=== PATIENT | male | born 1945 | race Caucasian/White ===

== ENCOUNTER 2017-06-03 20:06 | Emergency (ER) | payer OTHER ==
[2017-06-03 22:32] LABS: ADD MAN DIFF? NO
[2017-06-03 22:35] LABS: WHITE BLOOD COUNT 7.3 10^3/ul (4.8-10.8)
[2017-06-03 22:35] LABS: BASOPHILS % 0.1 % (0.0-2.0); EOSINOPHILS % 0.5 % (0.0-7.0); HEMATOCRIT 30.9 % (42.0-52.0); HEMOGLOBIN 9.3 g/dl (14.0-18.0); LYMPHOCYTES # 1.9 10^3/ul (0.8-2.9); LYMPHOCYTES % 25.5 % (15.0-51.0); MEAN CORPUSCULAR HEMOGLOBIN 21.8 pg (29.0-33.0); MEAN CORPUSCULAR HGB CONC 30.1 g/dl (32.0-37.0); MEAN CORPUSCULAR VOLUME 72.4 fl (82.0-101.0); MEAN PLATELET VOLUME 10.6 fl (7.4-10.4); MONOCYTE # 0.6 10^3/ul (0.3-0.9); NEUTROPHIL # 4.8 10^3/ul (1.6-7.5); NEUTROPHILS % 65.6 % (39.0-77.0); PLATELET COUNT 287 10^3/UL (140-415); RED BLOOD COUNT 4.27 10^6/ul (4.70-6.10); RED CELL DISTRIBUTION WIDTH 16.4 % (11.5-14.5)
[2017-06-03 22:42] LABS: ALANINE AMINOTRANSFERASE 26 IU/L (13-69); ALBUMIN 3.8 g/dl (3.3-4.9); ALBUMIN/GLOBULIN RATIO 0.88; ALKALINE PHOSPHATASE 105 IU/L (42-121); ANION GAP 20 (8-16); ASPARTATE AMINO TRANSFERASE 35 IU/L (15-46); BLOOD UREA NITROGEN 14 mg/dl (7-20); CALCIUM 8.3 mg/dl (8.4-10.2); CARBON DIOXIDE 17 mmol/L (21-31); CHLORIDE 103 mmol/L (97-110); CREATININE 0.78 mg/dl (0.61-1.24); GLUCOSE 131 mg/dl (70-220); LIPASE 116 U/L (23-300); POTASSIUM 3.8 mmol/L (3.5-5.1); SODIUM 136 mmol/L (135-144); TOTAL PROTEIN 8.1 g/dl (6.1-8.1)
[2017-06-03 22:44] LABS: ADD UMIC NO; UR ASCORBIC ACID 20 mg/dL (NEGATIVE); UR BILIRUBIN (Dip) NEGATIVE (NEGATIVE); UR BLOOD (Dip) NEGATIVE (NEGATIVE); UR CLARITY CLEAR (CLEAR); UR COLOR STRAW (YELLOW); UR GLUCOSE (Dip) NEGATIVE (NEGATIVE); UR KETONES (Dip) NEGATIVE (NEGATIVE); UR LEUKOCYTE ESTERASE (Dip) NEGATIVE Leu/ul (NEGATIVE); UR NITRITE (Dip) NEGATIVE (NEGATIVE); UR SPECIFIC GRAVITY (Dip) 1.009 (1.003-1.030); UR TOTAL PROTEIN (Dip) NEGATIVE (NEGATIVE); UR UROBILINOGEN (Dip) NEGATIVE (NEGATIVE)
[2017-06-03] MEDS: FAMOTIDINE 20 MG INJ IV (22:53)
[2017-06-03] MEDS: HYDROmorphONE 0.5 MG/0.5 ML SYG IV (22:53)
[2017-06-03] MEDS: ONDANSETRON 4 MG INJ IV (22:53)
[2017-06-03] MEDS: SOD CHLORIDE 0.9% 1,000 ML IV (22:53)
[2017-06-03] MEDS: LIDOCAINE/MYLANTA 40 ML BTL PO (22:59)
[2017-06-04] MEDS: SOD CHLORIDE 0.9% 1,000 ML IV (00:52)
[2017-06-04] MEDS: LIDOCAINE/MYLANTA 40 ML BTL PO (01:07)
[2017-06-04] MEDS: ONDANSETRON 4 MG INJ IV (01:08)
[2017-06-04] MEDS: HYDROmorphONE 0.5 MG/0.5 ML SYG IV (01:08)
[2017-06-04] MEDS: SOD CHLORIDE 0.9% 100 ML (01:29)
[2017-06-04] MEDS: IOHEXOL 300MG/ML 150 ML BTL (01:29)
[2017-06-04 02:58] LABS: TROPONIN-I < 0.012 ng/ml (0.00-0.12)
== END 2017-06-04 03:30 | disposition home or self-care (01) ==
LOC: E/R 06-04 03:30
DX: K20.9 Esophagitis, unspecified (principal); K29.70 Gastritis, unspecified, without bleeding; Z85.46 Personal history of malignant neoplasm of prostate
CPT/HCPCS: 36415; 74177; 80053; 81003; 83690; 84484; 85025; 93005; 96361; 96374; 96375; 96376; 99285-25

== ENCOUNTER 2017-06-20 20:21 | Emergency (ER) | payer OTHER ==
[2017-06-20 21:31] LABS: ADD MAN DIFF? NO
[2017-06-20 21:34] LABS: BASOPHILS % 0.2 % (0.0-2.0); EOSINOPHILS # 0.2 10^3/ul (0.0-0.5); EOSINOPHILS % 2.6 % (0.0-7.0); HEMATOCRIT 28.8 % (42.0-52.0); HEMOGLOBIN 8.9 g/dl (14.0-18.0); LYMPHOCYTES # 2.3 10^3/ul (0.8-2.9); LYMPHOCYTES % 24.5 % (15.0-51.0); MEAN CORPUSCULAR HEMOGLOBIN 22.7 pg (29.0-33.0); MEAN CORPUSCULAR HGB CONC 30.9 g/dl (32.0-37.0); MEAN CORPUSCULAR VOLUME 73.5 fl (82.0-101.0); MEAN PLATELET VOLUME 9.5 fl (7.4-10.4); MONOCYTE # 0.8 10^3/ul (0.3-0.9); NEUTROPHILS % 64.5 % (39.0-77.0); PLATELET COUNT 515 10^3/UL (140-415); RED BLOOD COUNT 3.92 10^6/ul (4.70-6.10); RED CELL DISTRIBUTION WIDTH 18.2 % (11.5-14.5)
[2017-06-20 21:34] LABS: WHITE BLOOD COUNT 9.3 10^3/ul (4.8-10.8)
[2017-06-20] MEDS: ONDANSETRON 4 MG INJ IV (21:40)
[2017-06-20] MEDS: HYDROmorphONE 0.5 MG/0.5 ML SYG IV (21:40)
[2017-06-20 21:44] LABS: ADD UMIC NO; UR ASCORBIC ACID NEGATIVE (NEGATIVE); UR BILIRUBIN (Dip) NEGATIVE (NEGATIVE); UR BLOOD (Dip) NEGATIVE (NEGATIVE); UR CLARITY CLEAR (CLEAR); UR COLOR STRAW (YELLOW); UR GLUCOSE (Dip) NEGATIVE (NEGATIVE); UR KETONES (Dip) NEGATIVE (NEGATIVE); UR LEUKOCYTE ESTERASE (Dip) NEGATIVE Leu/ul (NEGATIVE); UR NITRITE (Dip) NEGATIVE (NEGATIVE); UR SPECIFIC GRAVITY (Dip) 1.005 (1.003-1.030); UR TOTAL PROTEIN (Dip) NEGATIVE (NEGATIVE); UR UROBILINOGEN (Dip) NEGATIVE (NEGATIVE)
[2017-06-20 21:45] LABS: INR 0.98; PROTIME 13.1 Sec (11.9-14.9)
[2017-06-20 21:46] LABS: PARTIAL THROMBOPLASTIN TIME 35.5 Sec (25.0-35.0)
[2017-06-20 21:50] LABS: ANION GAP 14 (8-16); BLOOD UREA NITROGEN 16 mg/dl (7-20); C-REACTIVE PROTEIN 7.2 mg/dl (0.0-0.9); CALCIUM 8.6 mg/dl (8.4-10.2); CARBON DIOXIDE 27 mmol/L (21-31); CHLORIDE 103 mmol/L (97-110); CREATININE 0.95 mg/dl (0.61-1.24); GLUCOSE 172 mg/dl (70-220); POTASSIUM 3.9 mmol/L (3.5-5.1); SODIUM 140 mmol/L (135-144)
[2017-06-20 22:40] LABS: ERYTHROCYTE SEDIMENTATION RATE 60 mm/Hr (0-20)
== END 2017-06-20 23:46 | disposition home or self-care (01) ==
LOC: E/R 20:21
DX: L95.8 Other vasculitis limited to the skin (principal)
CPT/HCPCS: 36415; 80048; 81003; 85025; 85610; 85651; 85730; 86140; 96374; 96375; 99284-25

== ENCOUNTER 2017-07-02 11:56 | Emergency (ER) | payer OTHER ==
[2017-07-02] MEDS: morphine 4 MG/ML VIAL IV (13:45)
[2017-07-02] MEDS: ONDANSETRON 4 MG INJ IV (13:45)
[2017-07-02 14:14] LABS: ADD MAN DIFF? NO
[2017-07-02 14:19] LABS: WHITE BLOOD COUNT 10.5 10^3/ul (4.8-10.8)
[2017-07-02 14:19] LABS: BASOPHILS % 0.2 % (0.0-2.0); EOSINOPHILS # 0.4 10^3/ul (0.0-0.5); EOSINOPHILS % 3.3 % (0.0-7.0); HEMATOCRIT 28.6 % (42.0-52.0); HEMOGLOBIN 8.6 g/dl (14.0-18.0); LYMPHOCYTES % 19.1 % (15.0-51.0); MEAN CORPUSCULAR HEMOGLOBIN 22.6 pg (29.0-33.0); MEAN CORPUSCULAR HGB CONC 30.1 g/dl (32.0-37.0); MEAN CORPUSCULAR VOLUME 75.1 fl (82.0-101.0); MEAN PLATELET VOLUME 10.4 fl (7.4-10.4); MONOCYTE # 0.8 10^3/ul (0.3-0.9); MONOCYTES % 7.6 % (0.0-11.0); NEUTROPHIL # 7.3 10^3/ul (1.6-7.5); NEUTROPHILS % 69.2 % (39.0-77.0); PLATELET COUNT 411 10^3/UL (140-415); RED BLOOD COUNT 3.81 10^6/ul (4.70-6.10); RED CELL DISTRIBUTION WIDTH 19.4 % (11.5-14.5)
[2017-07-02 14:37] LABS: INR 0.94; PROTIME 12.7 Sec (11.9-14.9)
[2017-07-02 14:38] LABS: PARTIAL THROMBOPLASTIN TIME 35.8 Sec (25.0-35.0)
[2017-07-02 14:41] LABS: ALANINE AMINOTRANSFERASE 23 IU/L (13-69); ALBUMIN 3.8 g/dl (3.3-4.9); ALBUMIN/GLOBULIN RATIO 0.92; ALKALINE PHOSPHATASE 92 IU/L (42-121); ANION GAP 17 (8-16); ASPARTATE AMINO TRANSFERASE 18 IU/L (15-46); BILIRUBIN,INDIRECT 0.3 mg/dl (0-1.1); BILIRUBIN,TOTAL 0.3 mg/dl (0.2-1.3); BLOOD UREA NITROGEN 23 mg/dl (7-20); C-REACTIVE PROTEIN 5.6 mg/dl (0.0-0.9); CALCIUM 8.5 mg/dl (8.4-10.2); CARBON DIOXIDE 25 mmol/L (21-31); CHLORIDE 105 mmol/L (97-110); CREATININE 0.84 mg/dl (0.61-1.24); GLUCOSE 104 mg/dl (70-220); POTASSIUM 4.1 mmol/L (3.5-5.1); SODIUM 143 mmol/L (135-144); TOTAL PROTEIN 7.9 g/dl (6.1-8.1)
[2017-07-02 14:52] LABS: TROPONIN-I < 0.012 ng/ml (0.00-0.12)
[2017-07-02 15:06] LABS: ADD UMIC YES; UR ASCORBIC ACID NEGATIVE (NEGATIVE); UR BILIRUBIN (Dip) NEGATIVE (NEGATIVE); UR BLOOD (Dip) 1+ mg/dL (NEGATIVE); UR CLARITY CLEAR (CLEAR); UR COLOR YELLOW (YELLOW); UR GLUCOSE (Dip) NEGATIVE (NEGATIVE); UR KETONES (Dip) NEGATIVE (NEGATIVE); UR LEUKOCYTE ESTERASE (Dip) NEGATIVE Leu/ul (NEGATIVE); UR NITRITE (Dip) NEGATIVE (NEGATIVE); UR RBC 4 /HPF (0-5); UR SPECIFIC GRAVITY (Dip) 1.019 (1.003-1.030); UR TOTAL PROTEIN (Dip) 2+ mg/dl (NEGATIVE); UR UROBILINOGEN (Dip) NEGATIVE (NEGATIVE); UR WBC 4 /HPF (0-5)
[2017-07-02 15:38] LABS: ERYTHROCYTE SEDIMENTATION RATE 63 mm/Hr (0-20)
== END 2017-07-02 16:11 | disposition home or self-care (01) ==
LOC: FTE 11:56
DX: R21 Rash and other nonspecific skin eruption (principal); I10 Essential (primary) hypertension; R06.02 Shortness of breath; Z85.46 Personal history of malignant neoplasm of prostate
CPT/HCPCS: 36415; 71045; 80053; 81001; 84484; 85025; 85610; 85651; 85730; 86140; 96374; 96375; 99284-25

== ENCOUNTER 2017-10-05 15:08 | Emergency (ER) | payer OTHER ==
[2017-10-05 18:09] LABS: ADD MAN DIFF? NO
[2017-10-05 18:12] LABS: ABNORMAL IP MESSAGE 1; BASOPHILS % 0.3 % (0.0-2.0); EOSINOPHILS # 0.1 10^3/ul (0.0-0.5); EOSINOPHILS % 1.3 % (0.0-7.0); HEMATOCRIT 28.7 % (42.0-52.0); HEMOGLOBIN 8.3 g/dl (14.0-18.0); LYMPHOCYTES # 2.6 10^3/ul (0.8-2.9); LYMPHOCYTES % 26.4 % (15.0-51.0); MEAN CORPUSCULAR HEMOGLOBIN 19.5 pg (29.0-33.0); MEAN CORPUSCULAR HGB CONC 28.9 g/dl (32.0-37.0); MEAN CORPUSCULAR VOLUME 67.4 fl (82.0-101.0); MEAN PLATELET VOLUME 9.1 fl (7.4-10.4); MONOCYTE # 0.7 10^3/ul (0.3-0.9); MONOCYTES % 7.7 % (0.0-11.0); NEUTROPHIL # 6.2 10^3/ul (1.6-7.5); PLATELET COUNT 310 10^3/UL (140-415); POSITIVE DIFF @See below; RED BLOOD COUNT 4.26 10^6/ul (4.70-6.10); RED CELL DISTRIBUTION WIDTH 21.6 % (11.5-14.5)
[2017-10-05 18:12] LABS: WHITE BLOOD COUNT 9.7 10^3/ul (4.8-10.8)
[2017-10-05] MEDS: FAMOTIDINE 20 MG TAB PO (18:12)
[2017-10-05] MEDS: LIDOCAINE/MYLANTA 40 ML BTL PO (18:12)
[2017-10-05] MEDS: BELLADONNA/PHENOBARBITAL TAB PO (18:12)
[2017-10-05] MEDS: KETOROLAC 15 MG INJ IV (18:12)
[2017-10-05] MEDS: SOD CHLORIDE 0.9% 1,000 ML IV (18:13)
[2017-10-05 18:29] LABS: ALANINE AMINOTRANSFERASE 11 IU/L (13-69); ALBUMIN/GLOBULIN RATIO 1.08; ALKALINE PHOSPHATASE 72 IU/L (42-121); ANION GAP 18 (8-16); ASPARTATE AMINO TRANSFERASE 19 IU/L (15-46); BLOOD UREA NITROGEN 15 mg/dl (7-20); CALCIUM 8.8 mg/dl (8.4-10.2); CARBON DIOXIDE 19 mmol/L (21-31); CHLORIDE 110 mmol/L (97-110); CREATININE 0.91 mg/dl (0.61-1.24); GLUCOSE 101 mg/dl (70-220); LIPASE 41 U/L (23-300); POTASSIUM 3.8 mmol/L (3.5-5.1); SODIUM 143 mmol/L (135-144); TOTAL PROTEIN 7.7 g/dl (6.1-8.1)
[2017-10-05 18:41] LABS: TROPONIN-I < 0.010 ng/ml (0.000-0.120)
[2017-10-05] MEDS: traMADol-APAP 37.5-325 1 TAB PO (19:26)
== END 2017-10-05 21:09 | disposition home or self-care (01) ==
LOC: E/R 15:08
DX: G44.209 Tension-type headache, unspecified, not intractable (principal); R07.9 Chest pain, unspecified; D64.9 Anemia, unspecified; R40.2142 Coma scale, eyes open, spontaneous, at arrival to emergency department; R40.2252 Coma scale, best verbal response, oriented, at arrival to emergency department; R40.2362 Coma scale, best motor response, obeys commands, at arrival to emergency department; I10 Essential (primary) hypertension; Z85.46 Personal history of malignant neoplasm of prostate; Z72.89 Other problems related to lifestyle
CPT/HCPCS: 36415; 80053; 83690; 84484; 85025; 93005; 96374; 99284-25

== ENCOUNTER 2018-06-12 18:42 | Inpatient (IN) | payer OTHER ==
[2018-06-12 22:52] LABS: ADD MAN DIFF? NO
[2018-06-12 22:54] LABS: BASOPHIL # 0.1 10^3/ul (0.0-0.1); BASOPHILS % 0.5 % (0.0-2.0); EOSINOPHILS # 0.2 10^3/ul (0.0-0.5); EOSINOPHILS % 2.2 % (0.0-7.0); HEMATOCRIT 26.1 % (42.0-52.0); HEMOGLOBIN 7.7 g/dl (14.0-18.0); LYMPHOCYTES # 2.4 10^3/ul (0.8-2.9); LYMPHOCYTES % 22.5 % (15.0-51.0); MEAN CORPUSCULAR HEMOGLOBIN 20.4 pg (29.0-33.0); MEAN CORPUSCULAR HGB CONC 29.5 g/dl (32.0-37.0); MEAN CORPUSCULAR VOLUME 69.2 fl (82.0-101.0); MEAN PLATELET VOLUME 9.2 fl (7.4-10.4); MONOCYTE # 0.6 10^3/ul (0.3-0.9); MONOCYTES % 5.9 % (0.0-11.0); NEUTROPHIL # 7.3 10^3/ul (1.6-7.5); NEUTROPHILS % 68.3 % (39.0-77.0); PLATELET COUNT 653 10^3/UL (140-415); RED BLOOD COUNT 3.77 10^6/ul (4.70-6.10); RED CELL DISTRIBUTION WIDTH 21.6 % (11.5-14.5)
[2018-06-12 22:54] LABS: WHITE BLOOD COUNT 10.7 10^3/ul (4.8-10.8)
[2018-06-12 23:05] LABS: ALANINE AMINOTRANSFERASE 12 IU/L (13-69); ALBUMIN 3.6 g/dl (3.3-4.9); ALBUMIN/GLOBULIN RATIO 0.78; ALKALINE PHOSPHATASE 142 IU/L (42-121); ANION GAP 12 (5-13); ASPARTATE AMINO TRANSFERASE 31 IU/L (15-46); BLOOD UREA NITROGEN 16 mg/dl (7-20); CALCIUM 9.1 mg/dl (8.4-10.2); CARBON DIOXIDE 22 mmol/L (21-31); CHLORIDE 108 mmol/L (97-110); CREATININE 1.19 mg/dl (0.61-1.24); GLUCOSE 106 mg/dl (70-220); LIPASE 170 U/L (23-300); POTASSIUM 3.9 mmol/L (3.5-5.1); SODIUM 142 mmol/L (135-144); TOTAL PROTEIN 8.2 g/dl (6.1-8.1)
[2018-06-12] MEDS: SOD CHLORIDE 0.9% 500 ML IV (23:09)
[2018-06-12] MEDS: HYDROmorphONE 1 MG/ML SYG IV (23:09)
[2018-06-12] MEDS: ONDANSETRON 4 MG INJ IV (23:09)
[2018-06-12 23:16] LABS: TROPONIN-I < 0.012 ng/ml (0.000-0.120)
[2018-06-13] MEDS: morphine 4 MG/ML VIAL IV (04:36)
[2018-06-13 06:19] LABS: IMMEDIATE SPIN CROSSMATCH 1 3
[2018-06-13 06:50] LABS: ADD MAN DIFF? NO
[2018-06-13 06:56] LABS: WHITE BLOOD COUNT 7.6 10^3/ul (4.8-10.8)
[2018-06-13 06:56] LABS: ABNORMAL IP MESSAGE 1; BASOPHILS % 0.3 % (0.0-2.0); EOSINOPHILS # 0.2 10^3/ul (0.0-0.5); EOSINOPHILS % 2.2 % (0.0-7.0); HEMATOCRIT 23.2 % (42.0-52.0); LYMPHOCYTES % 26.3 % (15.0-51.0); MEAN CORPUSCULAR HEMOGLOBIN 20.3 pg (29.0-33.0); MEAN CORPUSCULAR HGB CONC 29.3 g/dl (32.0-37.0); MEAN CORPUSCULAR VOLUME 69.3 fl (82.0-101.0); MEAN PLATELET VOLUME 9.5 fl (7.4-10.4); MONOCYTE # 0.5 10^3/ul (0.3-0.9); MONOCYTES % 6.5 % (0.0-11.0); NEUTROPHIL # 4.9 10^3/ul (1.6-7.5); NEUTROPHILS % 64.3 % (39.0-77.0); PLATELET COUNT 568 10^3/UL (140-415); RED BLOOD COUNT 3.35 10^6/ul (4.70-6.10); RED CELL DISTRIBUTION WIDTH 21.5 % (11.5-14.5)
[2018-06-13 07:02] LABS: HEMOGLOBIN 6.8 g/dl (14.0-18.0); IRON 18 ug/dl (35-150)
[2018-06-13 07:08] LABS: ALANINE AMINOTRANSFERASE 20 IU/L (13-69); ALBUMIN 3.1 g/dl (3.3-4.9); ALBUMIN/GLOBULIN RATIO 0.83; ALKALINE PHOSPHATASE 105 IU/L (42-121); ANION GAP 6 (5-13); ASPARTATE AMINO TRANSFERASE 43 IU/L (15-46); BLOOD UREA NITROGEN 15 mg/dl (7-20); CALCIUM 8.1 mg/dl (8.4-10.2); CARBON DIOXIDE 24 mmol/L (21-31); CHLORIDE 111 mmol/L (97-110); CREATININE 0.98 mg/dl (0.61-1.24); GLUCOSE 95 mg/dl (70-220); POTASSIUM 3.7 mmol/L (3.5-5.1); SODIUM 141 mmol/L (135-144); TOTAL PROTEIN 6.8 g/dl (6.1-8.1)
[2018-06-13 07:13] LABS: % IRON SATURATION 6 % SAT (22-52); TOTAL IRON BINDING CAPACITY 280 ug/dl (241-421)
[2018-06-13 07:38] LABS: FERRITIN 31.8 ng/ml (11.1-264.0)
[2018-06-13] MEDS: morphine 2 MG INJ IV ×5 (08:27→22:21)
[2018-06-13] MEDS: PANTOPRAZOLE IV 80 MG in SOD CHLORIDE 0.9% 100 ML IV ×2 (10:07→16:06)
[2018-06-13] MEDS: SUCRALFATE (100 MG/ML) 10ML CUP PO ×2 (16:53→20:35)
[2018-06-13 16:58] LABS: TROPONIN-I < 0.012 ng/ml (0.000-0.120)
[2018-06-13] MEDS: D5W-0.45 NACL + KCL 10 MEQ 1,000 ML IV (17:43)
[2018-06-13] MEDS: ONDANSETRON 4 MG INJ IV (17:58)
[2018-06-13 18:22] LABS: HEMATOCRIT 31.8 % (42.0-52.0); HEMOGLOBIN 9.8 g/dl (14.0-18.0)
[2018-06-13] MEDS ORDERED: PANTOPRAZOLE 40 MG INJ IV (21:00)
[2018-06-13 21:01] LABS: TROPONIN-I < 0.012 ng/ml (0.000-0.120)
[2018-06-14] MEDS: morphine 2 MG INJ IV ×2 (02:31→05:57)
[2018-06-14] MEDS: PANTOPRAZOLE IV 80 MG in SOD CHLORIDE 0.9% 100 ML IV ×3 (02:37→16:49)
[2018-06-14 05:10] LABS: ADD MAN DIFF? NO
[2018-06-14 05:16] LABS: ABNORMAL IP MESSAGE 1; BASOPHILS % 0.4 % (0.0-2.0); EOSINOPHILS # 0.1 10^3/ul (0.0-0.5); EOSINOPHILS % 1.4 % (0.0-7.0); HEMATOCRIT 29.9 % (42.0-52.0); HEMOGLOBIN 9.3 g/dl (14.0-18.0); LYMPHOCYTES # 1.7 10^3/ul (0.8-2.9); LYMPHOCYTES % 21.3 % (15.0-51.0); MEAN CORPUSCULAR HEMOGLOBIN 22.1 pg (29.0-33.0); MEAN CORPUSCULAR HGB CONC 31.1 g/dl (32.0-37.0); MEAN PLATELET VOLUME 8.8 fl (7.4-10.4); MONOCYTE # 0.6 10^3/ul (0.3-0.9); MONOCYTES % 7.3 % (0.0-11.0); NEUTROPHIL # 5.5 10^3/ul (1.6-7.5); PLATELET COUNT 520 10^3/UL (140-415); POSITIVE DIFF @See below; RED BLOOD COUNT 4.21 10^6/ul (4.70-6.10); RED CELL DISTRIBUTION WIDTH 23.8 % (11.5-14.5)
[2018-06-14 06:07] LABS: ANION GAP 8 (5-13); BLOOD UREA NITROGEN 15 mg/dl (7-20); CALCIUM 8.2 mg/dl (8.4-10.2); CARBON DIOXIDE 23 mmol/L (21-31); CHLORIDE 109 mmol/L (97-110); CREATININE 0.82 mg/dl (0.61-1.24); GLUCOSE 106 mg/dl (70-220); SODIUM 140 mmol/L (135-144)
[2018-06-14] MEDS: D5W-0.45 NACL + KCL 10 MEQ 1,000 ML IV (07:36)
[2018-06-14] MEDS: SUCRALFATE (100 MG/ML) 10ML CUP PO ×4 (08:20→20:15)
[2018-06-14] MEDS: HYDROmorphONE 1 MG/ML SYG IV ×5 (08:56→22:27)
[2018-06-14] MEDS: FUROSEMIDE 20 MG INJ IV (09:09)
[2018-06-14] MEDS: ONDANSETRON 4 MG INJ IV (11:01)
[2018-06-14] MEDS: PROPOFOL 20 ML (14:48)
[2018-06-14] MEDS ORDERED: HYDROmorphONE 1 MG/5 ML IV SYRINGE IV ×3 (15:21→15:30)
[2018-06-14] MEDS: HYDROmorphONE 1 MG/5 ML IV SYRINGE IV (15:26)
[2018-06-14] MEDS ORDERED: FENTAnyl 50 MCG/ML VIAL IV ×3 (15:30)
[2018-06-14] MEDS ORDERED: LORAZEPAM 0.5 MG TAB PO (16:00)
[2018-06-14] MEDS: BENAZEPRIL 40 MG TAB PO (16:15)
[2018-06-14] MEDS: TAMSULOSIN (SR) 0.4 MG CAP PO (20:14)
[2018-06-14] MEDS: GABAPENTIN 400 MG CAP PO (20:14)
[2018-06-14] MEDS: METOPROLOL 50 MG TAB PO (20:15)
[2018-06-14] MEDS: BRIMONIDINE 0.2%-TIMOLOL 0.5% 5ML OPH BOTH EYES (20:16)
[2018-06-14] MEDS ORDERED: FUROSEMIDE 20 MG TAB PO (21:00)
[2018-06-15] MEDS: HYDROmorphONE 1 MG/ML SYG IV ×7 (00:21→23:54)
[2018-06-15] MEDS: PANTOPRAZOLE IV 80 MG in SOD CHLORIDE 0.9% 100 ML IV (02:29)
[2018-06-15 05:49] LABS: ADD MAN DIFF? NO
[2018-06-15 05:58] LABS: WHITE BLOOD COUNT 9.9 10^3/ul (4.8-10.8)
[2018-06-15 05:58] LABS: ABNORMAL IP MESSAGE 1; BASOPHILS % 0.3 % (0.0-2.0); EOSINOPHILS # 0.1 10^3/ul (0.0-0.5); EOSINOPHILS % 0.9 % (0.0-7.0); HEMATOCRIT 32.8 % (42.0-52.0); LYMPHOCYTES # 1.7 10^3/ul (0.8-2.9); LYMPHOCYTES % 17.6 % (15.0-51.0); MEAN CORPUSCULAR HEMOGLOBIN 22.2 pg (29.0-33.0); MEAN CORPUSCULAR HGB CONC 30.5 g/dl (32.0-37.0); MEAN CORPUSCULAR VOLUME 72.7 fl (82.0-101.0); MEAN PLATELET VOLUME 9.2 fl (7.4-10.4); MONOCYTE # 0.8 10^3/ul (0.3-0.9); MONOCYTES % 7.8 % (0.0-11.0); NEUTROPHIL # 7.2 10^3/ul (1.6-7.5); NEUTROPHILS % 73.1 % (39.0-77.0); PLATELET COUNT 551 10^3/UL (140-415); POSITIVE DIFF @See below; RED BLOOD COUNT 4.51 10^6/ul (4.70-6.10); RED CELL DISTRIBUTION WIDTH 23.8 % (11.5-14.5)
[2018-06-15 06:13] LABS: ANION GAP 10 (5-13); BLOOD UREA NITROGEN 17 mg/dl (7-20); CALCIUM 8.9 mg/dl (8.4-10.2); CARBON DIOXIDE 24 mmol/L (21-31); CHLORIDE 104 mmol/L (97-110); CREATININE 0.88 mg/dl (0.61-1.24); GLUCOSE 107 mg/dl (70-220); POTASSIUM 3.9 mmol/L (3.5-5.1); SODIUM 138 mmol/L (135-144)
[2018-06-15] MEDS: SUCRALFATE (100 MG/ML) 10ML CUP PO ×4 (08:32→20:47)
[2018-06-15] MEDS: BENAZEPRIL 40 MG TAB PO (08:33)
[2018-06-15] MEDS: METOPROLOL 50 MG TAB PO ×2 (08:33→20:48)
[2018-06-15] MEDS: GABAPENTIN 400 MG CAP PO ×3 (08:34→20:47)
[2018-06-15] MEDS: ISOSORBIDE MONONITRATE(SR)60 MG TAB PO (08:34)
[2018-06-15] MEDS: BRIMONIDINE 0.2%-TIMOLOL 0.5% 5ML OPH BOTH EYES ×2 (10:30→20:53)
[2018-06-15] MEDS: FUROSEMIDE 20 MG TAB PO (12:18)
[2018-06-15] MEDS: SOD CHLORIDE 0.9% 100 ML (13:06)
[2018-06-15] MEDS: IOHEXOL 100 ML (13:06)
[2018-06-15] MEDS: IOHEXOL 350MG/ML 50 ML BTL (13:06)
[2018-06-15] MEDS: HYDROCODONE/APAP (10/325) TAB PO (16:05)
[2018-06-15] MEDS: ONDANSETRON 4 MG INJ IV (17:38)
[2018-06-15] MEDS: PANTOPRAZOLE (EC) 40 MG TAB PO (17:39)
[2018-06-15] MEDS: TAMSULOSIN (SR) 0.4 MG CAP PO (20:47)
[2018-06-16] MEDS: HYDROmorphONE 1 MG/ML SYG IV ×3 (03:09→09:11)
[2018-06-16 05:19] LABS: ADD MAN DIFF? NO
[2018-06-16 05:25] LABS: WHITE BLOOD COUNT 6.6 10^3/ul (4.8-10.8)
[2018-06-16 05:25] LABS: ABNORMAL IP MESSAGE 1; BASOPHILS % 0.6 % (0.0-2.0); EOSINOPHILS # 0.2 10^3/ul (0.0-0.5); EOSINOPHILS % 3.5 % (0.0-7.0); HEMATOCRIT 32.7 % (42.0-52.0); HEMOGLOBIN 9.9 g/dl (14.0-18.0); LYMPHOCYTES # 1.8 10^3/ul (0.8-2.9); LYMPHOCYTES % 27.9 % (15.0-51.0); MEAN CORPUSCULAR HGB CONC 30.3 g/dl (32.0-37.0); MEAN CORPUSCULAR VOLUME 72.7 fl (82.0-101.0); MEAN PLATELET VOLUME 9.2 fl (7.4-10.4); MONOCYTE # 0.7 10^3/ul (0.3-0.9); MONOCYTES % 10.4 % (0.0-11.0); NEUTROPHIL # 3.8 10^3/ul (1.6-7.5); NEUTROPHILS % 57.3 % (39.0-77.0); PLATELET COUNT 557 10^3/UL (140-415); POSITIVE DIFF @See below; RED CELL DISTRIBUTION WIDTH 24.8 % (11.5-14.5)
[2018-06-16 06:03] LABS: ANION GAP 7 (5-13); BLOOD UREA NITROGEN 19 mg/dl (7-20); CALCIUM 8.8 mg/dl (8.4-10.2); CARBON DIOXIDE 30 mmol/L (21-31); CHLORIDE 102 mmol/L (97-110); CREATININE 1.01 mg/dl (0.61-1.24); GLUCOSE 110 mg/dl (70-220); MAGNESIUM 2.3 mg/dl (1.7-2.5); PHOSPHORUS 4.3 mg/dl (2.5-4.9); SODIUM 139 mmol/L (135-144)
[2018-06-16] MEDS: PANTOPRAZOLE (EC) 40 MG TAB PO (06:07)
[2018-06-16] MEDS: FUROSEMIDE 20 MG TAB PO (06:07)
[2018-06-16] MEDS: GABAPENTIN 400 MG CAP PO ×2 (09:03→12:56)
[2018-06-16] MEDS: ISOSORBIDE MONONITRATE(SR)60 MG TAB PO (09:03)
[2018-06-16] MEDS: METOPROLOL 50 MG TAB PO (09:04)
[2018-06-16] MEDS: BRIMONIDINE 0.2%-TIMOLOL 0.5% 5ML OPH BOTH EYES (09:05)
[2018-06-16] MEDS: BENAZEPRIL 40 MG TAB PO (09:05)
[2018-06-16] MEDS: SUCRALFATE (100 MG/ML) 10ML CUP PO ×2 (09:06→12:56)
[2018-06-16] MEDS: ONDANSETRON 4 MG INJ IV (11:10)
[2018-06-16] MEDS: LIDOCAINE/MYLANTA 4 ML (PO SYG) PO (11:17)
== END 2018-06-16 13:15 | disposition home or self-care (01) | DRG 377 ==
LOC: E/R 18:42 → MS1 06-13 01:56
PROC: 0DB68ZX Excision of Stomach, Via Natural or Artificial Opening Endoscopic, Diagnostic (ICD-10-PCS; principal; 2018-06-14 14:15)
DX: K25.4 Chronic or unspecified gastric ulcer with hemorrhage (principal); I50.33 Acute on chronic diastolic (congestive) heart failure; D50.0 Iron deficiency anemia secondary to blood loss (chronic); Z85.46 Personal history of malignant neoplasm of prostate; I11.0 Hypertensive heart disease with heart failure; H40.9 Unspecified glaucoma
CPT/HCPCS: 36415; 36430; 71045; 74176; 74178; 80048; 80053; 82728; 83540; 83690; 83735; 84100; 84484; 85014; 85018; 85025; 86850; 86900; 86901; 86920; 93005; 93306; 96374; 96375; 99285-25

== ENCOUNTER 2018-06-30 10:40 | Inpatient (IN) | payer OTHER ==
[2018-06-30] MEDS: SOD CHLORIDE 0.9% 500 ML IV (12:43)
[2018-06-30] MEDS: ONDANSETRON 4 MG INJ IV ×2 (12:44→19:43)
[2018-06-30 12:57] LABS: ADD MAN DIFF? NO
[2018-06-30 12:58] LABS: WHITE BLOOD COUNT 11.7 10^3/ul (4.8-10.8)
[2018-06-30 12:58] LABS: ABNORMAL IP MESSAGE 1; BASOPHILS % 0.1 % (0.0-2.0); EOSINOPHILS # 0.1 10^3/ul (0.0-0.5); EOSINOPHILS % 0.6 % (0.0-7.0); HEMATOCRIT 33.2 % (42.0-52.0); HEMOGLOBIN 10.2 g/dl (14.0-18.0); LYMPHOCYTES # 1.7 10^3/ul (0.8-2.9); LYMPHOCYTES % 14.2 % (15.0-51.0); MEAN CORPUSCULAR HGB CONC 30.7 g/dl (32.0-37.0); MEAN CORPUSCULAR VOLUME 74.8 fl (82.0-101.0); MEAN PLATELET VOLUME 9.8 fl (7.4-10.4); MONOCYTE # 0.9 10^3/ul (0.3-0.9); MONOCYTES % 8.1 % (0.0-11.0); NEUTROPHIL # 8.9 10^3/ul (1.6-7.5); NEUTROPHILS % 76.2 % (39.0-77.0); PLATELET COUNT 329 10^3/UL (140-415); POSITIVE DIFF @See below; RED BLOOD COUNT 4.44 10^6/ul (4.70-6.10); RED CELL DISTRIBUTION WIDTH 25.2 % (11.5-14.5)
[2018-06-30 13:07] LABS: ADD UMIC YES; UR ASCORBIC ACID NEGATIVE (NEGATIVE); UR BACTERIA FEW /HPF (NONE SEEN); UR BILIRUBIN (Dip) NEGATIVE (NEGATIVE); UR BLOOD (Dip) 2+ mg/dL (NEGATIVE); UR CLARITY SLIGHTLY CLOUDY (CLEAR); UR COLOR STRAW (YELLOW); UR GLUCOSE (Dip) NEGATIVE (NEGATIVE); UR KETONES (Dip) NEGATIVE (NEGATIVE); UR LEUKOCYTE ESTERASE (Dip) NEGATIVE Leu/ul (NEGATIVE); UR NITRITE (Dip) NEGATIVE (NEGATIVE); UR RBC 1 /HPF (0-5); UR SPECIFIC GRAVITY (Dip) 1.012 (1.003-1.030); UR SQUAMOUS EPITHELIAL CELL FEW /HPF (FEW); UR TOTAL PROTEIN (Dip) 1+ mg/dl (NEGATIVE); UR UROBILINOGEN (Dip) NEGATIVE (NEGATIVE); UR WBC 3 /HPF (0-5)
[2018-06-30 13:16] LABS: ALANINE AMINOTRANSFERASE 12 IU/L (13-69); ALBUMIN 3.7 g/dl (3.3-4.9); ALBUMIN/GLOBULIN RATIO 0.97; ALKALINE PHOSPHATASE 78 IU/L (42-121); ANION GAP 18 (5-13); ASPARTATE AMINO TRANSFERASE 32 IU/L (15-46); BLOOD UREA NITROGEN 30 mg/dl (7-20); CALCIUM 8.3 mg/dl (8.4-10.2); CARBON DIOXIDE 13 mmol/L (21-31); CHLORIDE 99 mmol/L (97-110); CREATININE 3.34 mg/dl (0.61-1.24); GLUCOSE 108 mg/dl (70-220); LIPASE 123 U/L (23-300); POTASSIUM 4.8 mmol/L (3.5-5.1); SODIUM 130 mmol/L (135-144); TOTAL PROTEIN 7.5 g/dl (6.1-8.1)
[2018-06-30] MEDS ORDERED: NACL 0.9% 3 ML SYG IV (15:30)
[2018-06-30 16:14] LABS: FREE T4 (FREE THYROXINE) 1.26 ng/dl (0.78-2.44)
[2018-06-30] MEDS: morphine 2 MG INJ IV ×2 (17:29→20:42)
[2018-06-30] MEDS: SOD CHLORIDE 0.9% 1,000 ML IV (17:29)
[2018-06-30 19:12] LABS: Allen Test ACCEPTAB; Arterial Blood Gas Oxygen Sat 97.8 mmHG (95.0-100.0); Arterial COHb 0.5 % (0.0-3.0); Arterial Fraction of Oxyhgb 97.2 % (93.0-99.0); Arterial HCO3 13.3 mmol/L (22.0-26.0); Arterial MetHb 0.1 % (0.0-1.5); Arterial pCO2 32.4 mmhg (35-45); MODE NASAL CANNULA; Site Right Radial
[2018-06-30] MEDS ORDERED: GUAIFENESIN 20 MG/ML 5ML CUP PO (19:30)
[2018-06-30] MEDS ORDERED: CEPASTAT LOZENGE MT (19:30)
[2018-06-30] MEDS: SUCRALFATE 1 GM TAB PO ×2 (20:37→23:26)
[2018-06-30] MEDS: METOPROLOL 50 MG TAB PO (20:41)
[2018-06-30] MEDS: NA BICARBONATE 8.4% 50 ML SYG IV ×2 (20:44→23:00)
[2018-06-30] MEDS: PANTOPRAZOLE 40 MG INJ IV (20:46)
[2018-06-30] MEDS: BRIMONIDINE 0.2%-TIMOLOL 0.5% 5ML OPH BOTH EYES (20:51)
[2018-06-30] MEDS ORDERED: SOD CHLORIDE 0.9% IV (21:30)
[2018-06-30] MEDS ORDERED: SODIUM BICARBONATE IV (21:30)
[2018-06-30] MEDS: NITROGLYCERIN (SL) 0.4 MG TAB SL (22:47)
[2018-06-30] MEDS: SOD CHLORIDE 0.9% IV (22:48)
[2018-06-30] MEDS: SODIUM BICARBONATE IV (22:48)
[2018-06-30] MEDS: SODIUM BICARBONATE (IV ADD) 100 MEQ in DEXTROSE 5% 1,000 ML IV (23:22)
[2018-06-30 23:44] LABS: CREATINE KINASE 201 IU/L (23-200)
[2018-06-30 23:56] LABS: TROPONIN-I < 0.012 ng/ml (0.000-0.120)
[2018-06-30 23:57] LABS: CK-MB 6.08 ng/ml (0.0-2.4)
[2018-07-01] MEDS: morphine 2 MG INJ IV ×3 (00:36→09:30)
[2018-07-01] MEDS: HYDROCODONE/APAP (5/325) TAB PO ×4 (03:31→22:55)
[2018-07-01 05:01] LABS: ADD MAN DIFF? NO
[2018-07-01 05:12] LABS: ABNORMAL IP MESSAGE 1; BASOPHILS % 0.4 % (0.0-2.0); EOSINOPHILS # 0.2 10^3/ul (0.0-0.5); EOSINOPHILS % 2.4 % (0.0-7.0); HEMOGLOBIN 8.5 g/dl (14.0-18.0); LYMPHOCYTES # 1.6 10^3/ul (0.8-2.9); LYMPHOCYTES % 23.8 % (15.0-51.0); MEAN CORPUSCULAR HEMOGLOBIN 22.7 pg (29.0-33.0); MEAN CORPUSCULAR HGB CONC 31.5 g/dl (32.0-37.0); MEAN CORPUSCULAR VOLUME 72.2 fl (82.0-101.0); MEAN PLATELET VOLUME 10.5 fl (7.4-10.4); MONOCYTE # 0.9 10^3/ul (0.3-0.9); MONOCYTES % 13.1 % (0.0-11.0); NEUTROPHIL # 4.1 10^3/ul (1.6-7.5); NEUTROPHILS % 59.6 % (39.0-77.0); PLATELET COUNT 295 10^3/UL (140-415); POSITIVE DIFF @See below; RED BLOOD COUNT 3.74 10^6/ul (4.70-6.10); RED CELL DISTRIBUTION WIDTH 25.1 % (11.5-14.5)
[2018-07-01 05:12] LABS: WHITE BLOOD COUNT 6.8 10^3/ul (4.8-10.8)
[2018-07-01 05:24] LABS: HEMOGLOBIN A1C 5.9 % (0-5.9)
[2018-07-01] MEDS: ONDANSETRON 4 MG INJ IV ×2 (05:27→11:55)
[2018-07-01] MEDS: PANTOPRAZOLE 40 MG INJ IV ×2 (05:27→17:53)
[2018-07-01 05:34] LABS: CHOL/HDL RATIO 6.1 RATIO; HDL CHOLESTEROL 18 mg/dl (31-75); LDL CHOLESTEROL,CALCULATED 61 mg/dl; TRIGLYCERIDES 158 mg/dl (0-149)
[2018-07-01 05:34] LABS: CHOLESTEROL 111 mg/dl (100-200)
[2018-07-01 05:37] LABS: ANION GAP 11 (5-13); BLOOD UREA NITROGEN 37 mg/dl (7-20); CALCIUM 7.1 mg/dl (8.4-10.2); CARBON DIOXIDE 19 mmol/L (21-31); CHLORIDE 103 mmol/L (97-110); CREATININE 4.11 mg/dl (0.61-1.24); GLUCOSE 89 mg/dl (70-220); MAGNESIUM 2.1 mg/dl (1.7-2.5); POTASSIUM 3.7 mmol/L (3.5-5.1); SODIUM 133 mmol/L (135-144)
[2018-07-01] MEDS: LORAZEPAM 2 MG INJ IV ×2 (07:42→14:48)
[2018-07-01] MEDS: BRIMONIDINE 0.2%-TIMOLOL 0.5% 5ML OPH BOTH EYES ×2 (09:00→22:55)
[2018-07-01] MEDS ORDERED: PANTOPRAZOLE (EC) 40 MG TAB PO (09:00)
[2018-07-01] MEDS: SUCRALFATE 1 GM TAB PO ×4 (09:30→20:54)
[2018-07-01] MEDS: METOPROLOL 50 MG TAB PO ×2 (09:30→20:56)
[2018-07-01] MEDS: SODIUM BICARBONATE (IV ADD) 100 MEQ in DEXTROSE 5% 1,000 ML IV ×2 (09:30→12:57)
[2018-07-01] MEDS: MULTIVITAMINS/MINERALS TAB PO (09:30)
[2018-07-01] MEDS: ISOSORBIDE MONONITRATE(SR)60 MG TAB PO (09:31)
[2018-07-01 14:45] LABS: TROPONIN-I < 0.012 ng/ml (0.000-0.120)
[2018-07-01 20:32] LABS: TROPONIN-I < 0.012 ng/ml (0.000-0.120)
[2018-07-02] MEDS: LORAZEPAM 2 MG INJ IV ×3 (00:05→11:48)
[2018-07-02] MEDS: NITROGLYCERIN (SL) 0.4 MG TAB SL (00:14)
[2018-07-02 01:30] LABS: TROPONIN-I < 0.012 ng/ml (0.000-0.120)
[2018-07-02] MEDS: ONDANSETRON 4 MG INJ IV ×2 (02:07→07:43)
[2018-07-02] MEDS: ACETAMINOPHEN 325 MG TAB PO (02:51)
[2018-07-02] MEDS: traMADol 50 MG TAB PO (04:45)
[2018-07-02 05:52] LABS: ABNORMAL IP MESSAGE 1; ADD MAN DIFF? NO; BASOPHILS % 0.4 % (0.0-2.0); EOSINOPHILS # 0.1 10^3/ul (0.0-0.5); HEMATOCRIT 24.2 % (42.0-52.0); HEMOGLOBIN 7.8 g/dl (14.0-18.0); LYMPHOCYTES # 1.2 10^3/ul (0.8-2.9); LYMPHOCYTES % 16.6 % (15.0-51.0); MEAN CORPUSCULAR HEMOGLOBIN 23.2 pg (29.0-33.0); MEAN CORPUSCULAR HGB CONC 32.2 g/dl (32.0-37.0); MEAN PLATELET VOLUME 10.4 fl (7.4-10.4); MONOCYTE # 0.8 10^3/ul (0.3-0.9); MONOCYTES % 11.5 % (0.0-11.0); NEUTROPHIL # 4.8 10^3/ul (1.6-7.5); NEUTROPHILS % 69.1 % (39.0-77.0); PLATELET COUNT 285 10^3/UL (140-415); POSITIVE DIFF @See below; RED BLOOD COUNT 3.36 10^6/ul (4.70-6.10)
[2018-07-02 05:52] LABS: WHITE BLOOD COUNT 6.9 10^3/ul (4.8-10.8)
[2018-07-02] MEDS: PANTOPRAZOLE 40 MG INJ IV ×2 (05:52→18:18)
[2018-07-02] MEDS: SODIUM BICARBONATE (IV ADD) 100 MEQ in DEXTROSE 5% 1,000 ML IV (05:52)
[2018-07-02 06:13] LABS: TROPONIN-I < 0.012 ng/ml (0.000-0.120)
[2018-07-02 06:24] LABS: ANION GAP 13 (5-13); BLOOD UREA NITROGEN 42 mg/dl (7-20); CALCIUM 6.8 mg/dl (8.4-10.2); CARBON DIOXIDE 20 mmol/L (21-31); CHLORIDE 99 mmol/L (97-110); CREATININE 4.63 mg/dl (0.61-1.24); GLUCOSE 94 mg/dl (70-220); POTASSIUM 3.4 mmol/L (3.5-5.1); SODIUM 132 mmol/L (135-144)
[2018-07-02] MEDS: SUCRALFATE 1 GM TAB PO ×2 (08:33→12:25)
[2018-07-02] MEDS: METOPROLOL 50 MG TAB PO ×2 (08:33→21:43)
[2018-07-02] MEDS: MULTIVITAMINS/MINERALS TAB PO (08:33)
[2018-07-02] MEDS: BRIMONIDINE 0.2%-TIMOLOL 0.5% 5ML OPH BOTH EYES ×2 (08:34→21:42)
[2018-07-02] MEDS: ISOSORBIDE MONONITRATE(SR)60 MG TAB PO (08:35)
[2018-07-02] MEDS: HYDROCODONE/APAP (5/325) TAB PO ×2 (08:39→16:52)
[2018-07-02] MEDS ORDERED: HALOPERIDOL 5 MG INJ IV (12:30)
[2018-07-02] MEDS: SUCRALFATE (100 MG/ML) 10ML CUP PO ×3 (13:00→18:18)
[2018-07-02] MEDS: HALOPERIDOL 5 MG INJ IM (14:23)
[2018-07-02] MEDS: POTASSIUM CHLORIDE (SR) 20 MEQ TAB PO (14:23)
[2018-07-03] MEDS: HYDROCODONE/APAP (5/325) TAB PO ×4 (00:13→22:39)
[2018-07-03] MEDS: LORAZEPAM 2 MG INJ IV (01:54)
[2018-07-03] MEDS: hydrALAzine 20 MG INJ IV ×3 (02:35→18:07)
[2018-07-03 05:35] LABS: ABNORMAL IP MESSAGE 1; HEMATOCRIT 28.1 % (42.0-52.0); HEMOGLOBIN 9.1 g/dl (14.0-18.0); MEAN CORPUSCULAR HEMOGLOBIN 23.3 pg (29.0-33.0); MEAN CORPUSCULAR HGB CONC 32.4 g/dl (32.0-37.0); MEAN CORPUSCULAR VOLUME 71.9 fl (82.0-101.0); MEAN PLATELET VOLUME 10.5 fl (7.4-10.4); PLATELET COUNT 381 10^3/UL (140-415); POSITIVE DIFF @See below; RED BLOOD COUNT 3.91 10^6/ul (4.70-6.10)
[2018-07-03 05:35] LABS: WHITE BLOOD COUNT 11.9 10^3/ul (4.8-10.8)
[2018-07-03 06:02] LABS: ANION GAP 14 (5-13); BLOOD UREA NITROGEN 46 mg/dl (7-20); CALCIUM 7.7 mg/dl (8.4-10.2); CARBON DIOXIDE 20 mmol/L (21-31); CHLORIDE 103 mmol/L (97-110); CREATININE 4.85 mg/dl (0.61-1.24); GLUCOSE 120 mg/dl (70-220); POTASSIUM 3.7 mmol/L (3.5-5.1); SODIUM 137 mmol/L (135-144)
[2018-07-03 06:33] LABS: ADD MAN DIFF? YES
[2018-07-03] MEDS: FAMOTIDINE 20 MG INJ IV (06:46)
[2018-07-03 07:59] LABS: AADO2 Arterial 46.7 mmHg (7.0-24.0); Allen Test ACCEPTAB; Arterial Base Excess -3.1 mmol/L (-3.0-3); Arterial Blood Gas Oxygen Sat 84.4 mmHG (95.0-100.0); Arterial COHb 0.5 % (0.0-3.0); Arterial Fraction of Oxyhgb 83.9 % (93.0-99.0); Arterial HCO3 22.2 mmol/L (22.0-26.0); Arterial MetHb 0.1 % (0.0-1.5); Arterial pCO2 40.4 mmhg (35-45); MODE ROOM AIR; Site Right Radial
[2018-07-03] MEDS ORDERED: SOD CHLORIDE 0.45% 1,000 ML IV (09:00)
[2018-07-03] MEDS: SUCRALFATE (100 MG/ML) 10ML CUP PO ×4 (09:29→20:14)
[2018-07-03] MEDS: MULTIVITAMINS/MINERALS TAB PO (09:29)
[2018-07-03] MEDS: ISOSORBIDE MONONITRATE(SR)60 MG TAB PO (09:30)
[2018-07-03] MEDS: BRIMONIDINE 0.2%-TIMOLOL 0.5% 5ML OPH BOTH EYES ×2 (09:31→20:14)
[2018-07-03] MEDS: METOPROLOL 50 MG TAB PO (09:31)
[2018-07-03 11:00] LABS: ANISOCYTOSIS 2+ (0-0); BURR CELLS 1+ (0-0); EOSINOPHILS % (M) 3 % (0-7); ERYTHROBLAST% (NRBC) (M) 1 % (0-0); GIANT THROMBO% (M) 2 % (0-0); HYPOCHROMASIA 1+ (0-0); LYMPHOCYTES #M 1.5 10^3/ul (0.8-2.9); LYMPHOCYTES % (M) 13 % (15-51); MICROCYTOSIS 1+ (0-0); MONOCYTE #M 0.2 10^3/ul (0.3-0.9); MONOCYTES % (M) 2 % (0-11); OVALOCYTES 2+ (0-0); PLATELET ESTIMATE NORMAL; POIKILOCYTOSIS 2+ (0-0); POLYCHROMASIA 3+ (0-0); REACTIVE LYMPHOCYTES #M 0.1 10^3/ul (0.0-0.0); REACTIVE LYMPHOCYTES% (M) 1 % (0-0); SEGMENTED NEUTROPHILS (M) % 81 % (39-77); SMUDGE%M 2 % (0-0); SPHEROCYTES 1+ (0-0)
[2018-07-03] MEDS: ONDANSETRON 4 MG INJ IV ×2 (11:35→18:03)
[2018-07-03] MEDS: FUROSEMIDE 20 MG INJ IV ×2 (11:37→19:21)
[2018-07-03] MEDS: HALOPERIDOL 5 MG INJ IM (11:51)
[2018-07-03] MEDS ORDERED: EPHEDrine 25 MG/5 ML SYG IV (17:00)
[2018-07-03] MEDS ORDERED: LABETALOL HCL 20MG INJ IV (17:00)
[2018-07-03] MEDS: LIDOCAINE 2% (SDV) 5 ML INJ (17:06)
[2018-07-03] MEDS: PROPOFOL 40 ML (17:06)
[2018-07-03] MEDS: FENTAnyl 50 MCG/ML VIAL IV (18:04)
[2018-07-03] MEDS: METOPROLOL 100 MG TAB PO (20:15)
[2018-07-04] MEDS: ONDANSETRON 4 MG INJ IV ×2 (03:57→17:56)
[2018-07-04] MEDS: NITROGLYCERIN (SL) 0.4 MG TAB SL (04:09)
[2018-07-04] MEDS: LORAZEPAM 2 MG INJ IV (04:44)
[2018-07-04] MEDS: HYDROCODONE/APAP (5/325) TAB PO ×4 (04:46→23:20)
[2018-07-04 05:15] LABS: ADD MAN DIFF? NO
[2018-07-04 05:17] LABS: HEMATOCRIT 26.9 % (42.0-52.0); HEMOGLOBIN 8.6 g/dl (14.0-18.0); MEAN CORPUSCULAR HEMOGLOBIN 22.9 pg (29.0-33.0); MEAN CORPUSCULAR VOLUME 71.7 fl (82.0-101.0); RED BLOOD COUNT 3.75 10^6/ul (4.70-6.10); RED CELL DISTRIBUTION WIDTH 25.2 % (11.5-14.5)
[2018-07-04 05:17] LABS: WHITE BLOOD COUNT 7.9 10^3/ul (4.8-10.8)
[2018-07-04 05:18] LABS: ABNORMAL IP MESSAGE 1; BASOPHIL # 0.1 10^3/ul (0.0-0.1); BASOPHILS % 0.6 % (0.0-2.0); EOSINOPHILS # 0.1 10^3/ul (0.0-0.5); EOSINOPHILS % 1.5 % (0.0-7.0); LYMPHOCYTES # 1.6 10^3/ul (0.8-2.9); LYMPHOCYTES % 20.2 % (15.0-51.0); MEAN PLATELET VOLUME 10.2 fl (7.4-10.4); MONOCYTE # 1.1 10^3/ul (0.3-0.9); MONOCYTES % 14.1 % (0.0-11.0); NEUTROPHILS % 63.1 % (39.0-77.0); PLATELET COUNT 360 10^3/UL (140-415); POSITIVE DIFF @See below
[2018-07-04 05:36] LABS: ALANINE AMINOTRANSFERASE 17 IU/L (13-69); ALBUMIN 3.1 g/dl (3.3-4.9); ALKALINE PHOSPHATASE 77 IU/L (42-121); ASPARTATE AMINO TRANSFERASE 18 IU/L (15-46); BILIRUBIN,INDIRECT 0.3 mg/dl (0-1.1); BILIRUBIN,TOTAL 0.3 mg/dl (0.2-1.3); TOTAL PROTEIN 6.6 g/dl (6.1-8.1)
[2018-07-04 05:48] LABS: TROPONIN-I < 0.012 ng/ml (0.000-0.120)
[2018-07-04 05:50] LABS: ANION GAP 11 (5-13); BLOOD UREA NITROGEN 47 mg/dl (7-20); CALCIUM 8.4 mg/dl (8.4-10.2); CARBON DIOXIDE 25 mmol/L (21-31); CHLORIDE 104 mmol/L (97-110); CREATININE 4.52 mg/dl (0.61-1.24); GLUCOSE 101 mg/dl (70-220); POTASSIUM 3.1 mmol/L (3.5-5.1); SODIUM 140 mmol/L (135-144)
[2018-07-04] MEDS: FUROSEMIDE 20 MG INJ IV ×2 (05:52→17:52)
[2018-07-04] MEDS: hydrALAzine 20 MG INJ IV (06:18)
[2018-07-04] MEDS: POTASSIUM CHLORIDE (SR) 20 MEQ TAB PO ×2 (06:39→20:29)
[2018-07-04] MEDS: SUCRALFATE (100 MG/ML) 10ML CUP PO ×4 (08:04→20:29)
[2018-07-04] MEDS: BRIMONIDINE 0.2%-TIMOLOL 0.5% 5ML OPH BOTH EYES ×2 (08:04→21:11)
[2018-07-04] MEDS: HYDROCHLOROTHIAZIDE 12.5 MG CAP PO (08:05)
[2018-07-04] MEDS: MULTIVITAMINS/MINERALS TAB PO (08:05)
[2018-07-04] MEDS: METOPROLOL 100 MG TAB PO ×2 (08:05→21:10)
[2018-07-04] MEDS: ISOSORBIDE MONONITRATE(SR)60 MG TAB PO (08:05)
[2018-07-04] MEDS: DOCUSATE SODIUM 100 MG CAP PO (08:05)
[2018-07-04] MEDS: PAROXETINE 20 MG TAB PO (13:10)
[2018-07-04] MEDS: clonAZEPAM 0.5 MG TAB PO ×2 (14:30→21:10)
[2018-07-04] MEDS: PANTOPRAZOLE (EC) 40 MG TAB PO (17:48)
[2018-07-04] MEDS: MAGNESIUM HYDROXIDE 30ML CUP PO (20:29)
[2018-07-05] MEDS: ALBUTEROL/IPRATROPIUM (NEB) 3 ML AMP HHN (02:11)
[2018-07-05] MEDS: LORAZEPAM 2 MG INJ IV (02:31)
[2018-07-05] MEDS: PANTOPRAZOLE (EC) 40 MG TAB PO ×2 (05:16→17:39)
[2018-07-05] MEDS: FUROSEMIDE 20 MG INJ IV (05:21)
[2018-07-05] MEDS: clonAZEPAM 0.5 MG TAB PO ×3 (05:23→21:02)
[2018-07-05 05:56] LABS: ADD MAN DIFF? NO
[2018-07-05 05:57] LABS: ABNORMAL IP MESSAGE 1; BASOPHILS % 0.4 % (0.0-2.0); EOSINOPHILS # 0.1 10^3/ul (0.0-0.5); EOSINOPHILS % 1.2 % (0.0-7.0); HEMATOCRIT 28.1 % (42.0-52.0); HEMOGLOBIN 8.9 g/dl (14.0-18.0); LYMPHOCYTES # 1.5 10^3/ul (0.8-2.9); LYMPHOCYTES % 18.4 % (15.0-51.0); MEAN CORPUSCULAR HEMOGLOBIN 22.7 pg (29.0-33.0); MEAN CORPUSCULAR HGB CONC 31.7 g/dl (32.0-37.0); MEAN CORPUSCULAR VOLUME 71.7 fl (82.0-101.0); MEAN PLATELET VOLUME 10.5 fl (7.4-10.4); MONOCYTE # 0.8 10^3/ul (0.3-0.9); MONOCYTES % 9.8 % (0.0-11.0); NEUTROPHIL # 5.8 10^3/ul (1.6-7.5); NEUTROPHILS % 69.8 % (39.0-77.0); PLATELET COUNT 375 10^3/UL (140-415); POSITIVE DIFF @See below; RED BLOOD COUNT 3.92 10^6/ul (4.70-6.10); RED CELL DISTRIBUTION WIDTH 25.9 % (11.5-14.5)
[2018-07-05 05:57] LABS: WHITE BLOOD COUNT 8.3 10^3/ul (4.8-10.8)
[2018-07-05 06:21] LABS: ALANINE AMINOTRANSFERASE 23 IU/L (13-69); ALBUMIN 3.5 g/dl (3.3-4.9); ALKALINE PHOSPHATASE 97 IU/L (42-121); ASPARTATE AMINO TRANSFERASE 17 IU/L (15-46); BILIRUBIN,INDIRECT 0.3 mg/dl (0-1.1); BILIRUBIN,TOTAL 0.3 mg/dl (0.2-1.3); TOTAL PROTEIN 7.2 g/dl (6.1-8.1)
[2018-07-05 06:30] LABS: ANION GAP 11 (5-13); BLOOD UREA NITROGEN 50 mg/dl (7-20); CALCIUM 9.3 mg/dl (8.4-10.2); CARBON DIOXIDE 28 mmol/L (21-31); CHLORIDE 101 mmol/L (97-110); CREATININE 4.28 mg/dl (0.61-1.24); GLUCOSE 123 mg/dl (70-220); POTASSIUM 3.6 mmol/L (3.5-5.1); SODIUM 140 mmol/L (135-144)
[2018-07-05] MEDS: HYDROCODONE/APAP (5/325) TAB PO (07:45)
[2018-07-05] MEDS: ISOSORBIDE MONONITRATE(SR)60 MG TAB PO (08:23)
[2018-07-05] MEDS: POTASSIUM CHLORIDE (SR) 20 MEQ TAB PO ×2 (08:23→20:55)
[2018-07-05] MEDS: PAROXETINE 20 MG TAB PO (08:23)
[2018-07-05] MEDS: SUCRALFATE (100 MG/ML) 10ML CUP PO ×4 (08:23→20:55)
[2018-07-05] MEDS: METOPROLOL 100 MG TAB PO ×2 (08:24→21:00)
[2018-07-05] MEDS: BRIMONIDINE 0.2%-TIMOLOL 0.5% 5ML OPH BOTH EYES ×2 (08:24→20:55)
[2018-07-05] MEDS: MULTIVITAMINS/MINERALS TAB PO (08:24)
[2018-07-05] MEDS: HYDROCHLOROTHIAZIDE 12.5 MG CAP PO (08:45)
[2018-07-05] MEDS: ONDANSETRON 4 MG INJ IV ×2 (09:06→18:44)
[2018-07-05] MEDS: HALOPERIDOL 5 MG INJ IM (10:56)
[2018-07-05] MEDS: DOCUSATE SODIUM 100 MG CAP PO (12:07)
[2018-07-05] MEDS: MAGNESIUM HYDROXIDE 30ML CUP PO (12:07)
[2018-07-05] MEDS: ACETAMINOPHEN 325 MG TAB PO (14:04)
[2018-07-05] MEDS: NIFEdipine (XL) 30 MG TAB PO (17:38)
[2018-07-05] MEDS: FUROSEMIDE 40 MG TAB PO (17:39)
[2018-07-05] MEDS: hydrALAzine 20 MG INJ IV (21:02)
[2018-07-06] MEDS: ACETAMINOPHEN 325 MG TAB PO ×3 (00:16→17:11)
[2018-07-06] MEDS: POLYETHYLENE GLYCOL 17 GM PACKET PO ×2 (00:56→08:48)
[2018-07-06] MEDS: HALOPERIDOL 5 MG INJ IM (03:00)
[2018-07-06] MEDS: PANTOPRAZOLE (EC) 40 MG TAB PO ×2 (05:21→17:08)
[2018-07-06] MEDS: FUROSEMIDE 40 MG TAB PO ×2 (05:25→17:07)
[2018-07-06] MEDS: clonAZEPAM 0.5 MG TAB PO ×3 (05:30→21:46)
[2018-07-06 06:43] LABS: ADD MAN DIFF? NO
[2018-07-06 06:45] LABS: ABNORMAL IP MESSAGE 1; BASOPHILS % 0.3 % (0.0-2.0); EOSINOPHILS % 0.2 % (0.0-7.0); HEMATOCRIT 30.2 % (42.0-52.0); HEMOGLOBIN 9.6 g/dl (14.0-18.0); LYMPHOCYTES # 1.5 10^3/ul (0.8-2.9); LYMPHOCYTES % 14.5 % (15.0-51.0); MEAN CORPUSCULAR HGB CONC 31.8 g/dl (32.0-37.0); MEAN CORPUSCULAR VOLUME 72.4 fl (82.0-101.0); MEAN PLATELET VOLUME 9.8 fl (7.4-10.4); MONOCYTE # 0.8 10^3/ul (0.3-0.9); MONOCYTES % 7.5 % (0.0-11.0); NEUTROPHIL # 7.7 10^3/ul (1.6-7.5); PLATELET COUNT 374 10^3/UL (140-415); POSITIVE DIFF @See below; RED BLOOD COUNT 4.17 10^6/ul (4.70-6.10); RED CELL DISTRIBUTION WIDTH 26.2 % (11.5-14.5)
[2018-07-06 07:03] LABS: URIC ACID 10.8 mg/dl (3.1-7.9)
[2018-07-06 07:07] LABS: ALANINE AMINOTRANSFERASE 25 IU/L (13-69); ALKALINE PHOSPHATASE 102 IU/L (42-121); ASPARTATE AMINO TRANSFERASE 29 IU/L (15-46); BILIRUBIN,INDIRECT 0.3 mg/dl (0-1.1); BILIRUBIN,TOTAL 0.3 mg/dl (0.2-1.3); TOTAL PROTEIN 7.9 g/dl (6.1-8.1)
[2018-07-06 07:12] LABS: B-TYPE NATRIURETIC PEPTIDE 2430 PG/ML (0-125)
[2018-07-06 07:15] LABS: ANION GAP 10 (5-13); BLOOD UREA NITROGEN 53 mg/dl (7-20); CALCIUM 9.5 mg/dl (8.4-10.2); CARBON DIOXIDE 29 mmol/L (21-31); CHLORIDE 101 mmol/L (97-110); CREATININE 3.79 mg/dl (0.61-1.24); GLUCOSE 162 mg/dl (70-220); POTASSIUM 3.4 mmol/L (3.5-5.1); SODIUM 140 mmol/L (135-144)
[2018-07-06] MEDS: SUCRALFATE (100 MG/ML) 10ML CUP PO ×4 (08:48→20:07)
[2018-07-06] MEDS: METOPROLOL 100 MG TAB PO ×2 (08:48→20:07)
[2018-07-06] MEDS: BRIMONIDINE 0.2%-TIMOLOL 0.5% 5ML OPH BOTH EYES ×2 (08:48→20:06)
[2018-07-06] MEDS: NIFEdipine (XL) 30 MG TAB PO (08:49)
[2018-07-06] MEDS: ISOSORBIDE MONONITRATE(SR)60 MG TAB PO (08:49)
[2018-07-06] MEDS: POTASSIUM CHLORIDE (SR) 20 MEQ TAB PO ×3 (08:50→20:07)
[2018-07-06] MEDS: PAROXETINE 20 MG TAB PO (08:50)
[2018-07-06] MEDS: MULTIVITAMINS/MINERALS TAB PO (08:50)
[2018-07-06] MEDS: ALLOPURINOL 100 MG TAB PO (12:21)
[2018-07-07] MEDS: ACETAMINOPHEN 325 MG TAB PO ×3 (00:09→20:25)
[2018-07-07] MEDS: ONDANSETRON 4 MG INJ IV ×2 (03:53→12:18)
[2018-07-07] MEDS: PANTOPRAZOLE (EC) 40 MG TAB PO ×2 (05:01→18:27)
[2018-07-07] MEDS: FUROSEMIDE 40 MG TAB PO ×2 (05:01→18:29)
[2018-07-07] MEDS: clonAZEPAM 0.5 MG TAB PO ×3 (05:01→21:01)
[2018-07-07 06:19] LABS: ADD MAN DIFF? NO
[2018-07-07 06:24] LABS: ABNORMAL IP MESSAGE 1; BASOPHILS % 0.4 % (0.0-2.0); EOSINOPHILS # 0.1 10^3/ul (0.0-0.5); EOSINOPHILS % 0.7 % (0.0-7.0); HEMATOCRIT 28.5 % (42.0-52.0); LYMPHOCYTES # 2.2 10^3/ul (0.8-2.9); MEAN CORPUSCULAR HEMOGLOBIN 23.1 pg (29.0-33.0); MEAN CORPUSCULAR HGB CONC 31.6 g/dl (32.0-37.0); MEAN CORPUSCULAR VOLUME 73.1 fl (82.0-101.0); MONOCYTE # 1.2 10^3/ul (0.3-0.9); MONOCYTES % 14.4 % (0.0-11.0); NEUTROPHIL # 4.6 10^3/ul (1.6-7.5); PLATELET COUNT 384 10^3/UL (140-415); POSITIVE DIFF @See below; RED CELL DISTRIBUTION WIDTH 26.2 % (11.5-14.5)
[2018-07-07 06:24] LABS: WHITE BLOOD COUNT 8.1 10^3/ul (4.8-10.8)
[2018-07-07 06:48] LABS: ANION GAP 9 (5-13); BLOOD UREA NITROGEN 55 mg/dl (7-20); CALCIUM 9.2 mg/dl (8.4-10.2); CARBON DIOXIDE 31 mmol/L (21-31); CHLORIDE 102 mmol/L (97-110); CREATININE 3.27 mg/dl (0.61-1.24); GLUCOSE 144 mg/dl (70-220); POTASSIUM 4.1 mmol/L (3.5-5.1); SODIUM 142 mmol/L (135-144)
[2018-07-07] MEDS ORDERED: MEGESTROL 40 MG TAB PO ×2 (09:00→10:00)
[2018-07-07] MEDS: ALLOPURINOL 100 MG TAB PO (09:15)
[2018-07-07] MEDS: SUCRALFATE (100 MG/ML) 10ML CUP PO ×4 (09:16→20:25)
[2018-07-07] MEDS: MULTIVITAMINS/MINERALS TAB PO (09:16)
[2018-07-07] MEDS: ISOSORBIDE MONONITRATE(SR)60 MG TAB PO (09:16)
[2018-07-07] MEDS: POTASSIUM CHLORIDE (SR) 20 MEQ TAB PO ×2 (09:16→20:26)
[2018-07-07] MEDS: PAROXETINE 20 MG TAB PO (09:16)
[2018-07-07] MEDS: NIFEdipine (XL) 30 MG TAB PO (09:16)
[2018-07-07] MEDS: METOPROLOL 100 MG TAB PO ×2 (09:16→20:26)
[2018-07-07] MEDS: BRIMONIDINE 0.2%-TIMOLOL 0.5% 5ML OPH BOTH EYES ×2 (09:17→20:25)
[2018-07-07] MEDS: MEGESTROL (40 MG/ML) 10ML CUP PO (12:09)
[2018-07-07] MEDS: traMADol 50 MG TAB PO ×2 (16:38→23:02)
[2018-07-08] MEDS: ACETAMINOPHEN 325 MG TAB PO ×2 (02:30→23:13)
[2018-07-08] MEDS: traMADol 50 MG TAB PO ×3 (04:53→19:43)
[2018-07-08] MEDS: clonAZEPAM 0.5 MG TAB PO ×3 (05:02→21:13)
[2018-07-08] MEDS: PANTOPRAZOLE (EC) 40 MG TAB PO ×2 (05:02→17:09)
[2018-07-08] MEDS: FUROSEMIDE 40 MG TAB PO (05:03)
[2018-07-08 06:22] LABS: ADD MAN DIFF? NO
[2018-07-08 06:26] LABS: ABNORMAL IP MESSAGE 1; BASOPHIL # 0.1 10^3/ul (0.0-0.1); BASOPHILS % 0.6 % (0.0-2.0); EOSINOPHILS # 0.2 10^3/ul (0.0-0.5); EOSINOPHILS % 1.5 % (0.0-7.0); HEMATOCRIT 31.2 % (42.0-52.0); HEMOGLOBIN 9.8 g/dl (14.0-18.0); LYMPHOCYTES # 2.9 10^3/ul (0.8-2.9); LYMPHOCYTES % 29.4 % (15.0-51.0); MEAN CORPUSCULAR HEMOGLOBIN 23.3 pg (29.0-33.0); MEAN CORPUSCULAR HGB CONC 31.4 g/dl (32.0-37.0); MEAN CORPUSCULAR VOLUME 74.1 fl (82.0-101.0); MEAN PLATELET VOLUME 10.1 fl (7.4-10.4); MONOCYTES % 9.8 % (0.0-11.0); NEUTROPHIL # 5.9 10^3/ul (1.6-7.5); NEUTROPHILS % 58.4 % (39.0-77.0); PLATELET COUNT 399 10^3/UL (140-415); POSITIVE DIFF @See below; RED BLOOD COUNT 4.21 10^6/ul (4.70-6.10); RED CELL DISTRIBUTION WIDTH 25.9 % (11.5-14.5)
[2018-07-08 06:59] LABS: ANION GAP 10 (5-13); BLOOD UREA NITROGEN 68 mg/dl (7-20); CALCIUM 9.2 mg/dl (8.4-10.2); CARBON DIOXIDE 31 mmol/L (21-31); CHLORIDE 100 mmol/L (97-110); CREATININE 3.09 mg/dl (0.61-1.24); GLUCOSE 126 mg/dl (70-220); SODIUM 141 mmol/L (135-144)
[2018-07-08] MEDS: METOPROLOL 100 MG TAB PO ×2 (09:40→21:00)
[2018-07-08] MEDS: ALLOPURINOL 100 MG TAB PO (09:40)
[2018-07-08] MEDS: SUCRALFATE (100 MG/ML) 10ML CUP PO ×4 (09:41→21:13)
[2018-07-08] MEDS: ISOSORBIDE MONONITRATE(SR)60 MG TAB PO (09:41)
[2018-07-08] MEDS: MULTIVITAMINS/MINERALS TAB PO (09:41)
[2018-07-08] MEDS: NIFEdipine (XL) 30 MG TAB PO (09:41)
[2018-07-08] MEDS: POTASSIUM CHLORIDE (SR) 20 MEQ TAB PO ×2 (09:41→21:13)
[2018-07-08] MEDS: PAROXETINE 20 MG TAB PO (09:41)
[2018-07-08] MEDS: MEGESTROL (40 MG/ML) 10ML CUP PO (09:41)
[2018-07-08] MEDS: BRIMONIDINE 0.2%-TIMOLOL 0.5% 5ML OPH BOTH EYES ×2 (12:00→21:13)
[2018-07-08] MEDS: FUROSEMIDE 20 MG TAB PO (17:08)
[2018-07-09] MEDS: traMADol 50 MG TAB PO ×3 (01:26→17:17)
[2018-07-09] MEDS: clonAZEPAM 0.5 MG TAB PO ×2 (05:18→13:56)
[2018-07-09] MEDS: PANTOPRAZOLE (EC) 40 MG TAB PO ×2 (05:18→17:16)
[2018-07-09] MEDS: FUROSEMIDE 20 MG TAB PO ×2 (05:19→17:19)
[2018-07-09] MEDS: METOPROLOL 100 MG TAB PO (08:24)
[2018-07-09] MEDS: POTASSIUM CHLORIDE (SR) 20 MEQ TAB PO (08:35)
[2018-07-09] MEDS: PAROXETINE 20 MG TAB PO (08:35)
[2018-07-09] MEDS: NIFEdipine (XL) 30 MG TAB PO (08:35)
[2018-07-09] MEDS: SUCRALFATE (100 MG/ML) 10ML CUP PO ×3 (08:35→16:05)
[2018-07-09] MEDS: ISOSORBIDE MONONITRATE(SR)60 MG TAB PO (08:35)
[2018-07-09] MEDS: MEGESTROL (40 MG/ML) 10ML CUP PO (08:35)
[2018-07-09] MEDS: ALLOPURINOL 100 MG TAB PO (08:36)
[2018-07-09] MEDS: BRIMONIDINE 0.2%-TIMOLOL 0.5% 5ML OPH BOTH EYES (08:36)
[2018-07-09] MEDS: MULTIVITAMINS/MINERALS TAB PO (08:36)
[2018-07-09] MEDS: ACETAMINOPHEN 325 MG TAB PO ×2 (11:58→18:35)
== END 2018-07-09 19:01 | DRG 683 ==
LOC: E/R 10:40 → MS1 07-02 09:01 → 5EC 07-04 17:28 → MS1 14:55
PROC: 0DB68ZX Excision of Stomach, Via Natural or Artificial Opening Endoscopic, Diagnostic (ICD-10-PCS; principal; 2018-07-03 15:50)
DX: N17.0 Acute kidney failure with tubular necrosis (principal); E87.1 Hypo-osmolality and hyponatremia; E87.2 Acidosis; F33.2 Major depressive disorder, recurrent severe without psychotic features; I11.0 Hypertensive heart disease with heart failure; I50.9 Heart failure, unspecified; D50.9 Iron deficiency anemia, unspecified; F11.10 Opioid abuse, uncomplicated; E86.1 Hypovolemia; I16.0 Hypertensive urgency; E87.70 Fluid overload, unspecified; Z87.11 Personal history of peptic ulcer disease; E79.0 Hyperuricemia without signs of inflammatory arthritis and tophaceous disease; Z85.46 Personal history of malignant neoplasm of prostate; R11.2 Nausea with vomiting, unspecified; K20.9 Esophagitis, unspecified; K29.70 Gastritis, unspecified, without bleeding
CPT/HCPCS: 36415; 36600; 71045; 74018; 74176; 76775; 80048; 80053; 80061; 80076; 81001; 82550; 82553; 82803; 83036; 83690; 83735; 83880; 84100; 84439; 84443; 84484; 84560; 85025; 88305; 88312; 92610; 93005; 94664; 96361; 96374; 97116; 97161; 97167; 97530; 97535; 99217; 99285-25

== ENCOUNTER 2018-07-26 12:26 | Inpatient (IN) | payer OTHER ==
[2018-07-26 13:09] LABS: ADD MAN DIFF? NO
[2018-07-26 13:11] LABS: WHITE BLOOD COUNT 7.5 10^3/ul (4.8-10.8)
[2018-07-26 13:11] LABS: ABNORMAL IP MESSAGE 1; BASOPHILS % 0.5 % (0.0-2.0); EOSINOPHILS # 0.2 10^3/ul (0.0-0.5); EOSINOPHILS % 2.6 % (0.0-7.0); HEMATOCRIT 23.1 % (42.0-52.0); HEMOGLOBIN 7.3 g/dl (14.0-18.0); LYMPHOCYTES # 2.5 10^3/ul (0.8-2.9); MEAN CORPUSCULAR HEMOGLOBIN 24.2 pg (29.0-33.0); MEAN CORPUSCULAR HGB CONC 31.6 g/dl (32.0-37.0); MEAN CORPUSCULAR VOLUME 76.5 fl (82.0-101.0); MONOCYTE # 0.7 10^3/ul (0.3-0.9); MONOCYTES % 9.3 % (0.0-11.0); NEUTROPHIL # 4.1 10^3/ul (1.6-7.5); NEUTROPHILS % 54.3 % (39.0-77.0); PLATELET COUNT 219 10^3/UL (140-415); POSITIVE DIFF @See below; RED BLOOD COUNT 3.02 10^6/ul (4.70-6.10); RED CELL DISTRIBUTION WIDTH 24.9 % (11.5-14.5)
[2018-07-26 13:14] LABS: INR 1.09; PROTIME 14.2 Sec (11.9-14.9); PT RATIO 1.1
[2018-07-26 13:15] LABS: PARTIAL THROMBOPLASTIN TIME 28.6 Sec (23.0-35.0)
[2018-07-26] MEDS: ASPIRIN 325 MG TAB PO (13:20)
[2018-07-26] MEDS: SOD CHLORIDE 0.9% 1,000 ML IV ×3 (13:21→20:43)
[2018-07-26 13:22] LABS: ALANINE AMINOTRANSFERASE 33 IU/L (13-69); ALBUMIN 3.2 g/dl (3.3-4.9); ALBUMIN/GLOBULIN RATIO 0.86; ALKALINE PHOSPHATASE 79 IU/L (42-121); AMYLASE 113 U/L (11-123); ANION GAP 11 (5-13); ASPARTATE AMINO TRANSFERASE 21 IU/L (15-46); BILIRUBIN,INDIRECT 0.3 mg/dl (0-1.1); BILIRUBIN,TOTAL 0.3 mg/dl (0.2-1.3); BLOOD UREA NITROGEN 53 mg/dl (7-20); CALCIUM 8.3 mg/dl (8.4-10.2); CARBON DIOXIDE 18 mmol/L (21-31); CHLORIDE 110 mmol/L (97-110); GLUCOSE 102 mg/dl (70-220); LIPASE 394 U/L (23-300); POTASSIUM 4.8 mmol/L (3.5-5.1); SODIUM 139 mmol/L (135-144); TOTAL PROTEIN 6.9 g/dl (6.1-8.1)
[2018-07-26 13:36] LABS: ADD UMIC YES; UR ASCORBIC ACID NEGATIVE (NEGATIVE); UR BILIRUBIN (Dip) NEGATIVE (NEGATIVE); UR BLOOD (Dip) 1+ mg/dL (NEGATIVE); UR CLARITY CLEAR (CLEAR); UR COLOR YELLOW (YELLOW); UR GLUCOSE (Dip) NEGATIVE (NEGATIVE); UR KETONES (Dip) NEGATIVE (NEGATIVE); UR LEUKOCYTE ESTERASE (Dip) NEGATIVE Leu/ul (NEGATIVE); UR NITRITE (Dip) NEGATIVE (NEGATIVE); UR RBC 0 /HPF (0-5); UR SPECIFIC GRAVITY (Dip) 1.009 (1.003-1.030); UR TOTAL PROTEIN (Dip) NEGATIVE (NEGATIVE); UR UROBILINOGEN (Dip) NEGATIVE (NEGATIVE); UR WBC 0 /HPF (0-5)
[2018-07-26 13:43] LABS: B-TYPE NATRIURETIC PEPTIDE 276 PG/ML (0-125); TROPONIN-I < 0.012 ng/ml (0.000-0.120)
[2018-07-26] MEDS ORDERED: ONDANSETRON 4 MG INJ IV (17:30)
[2018-07-26] MEDS ORDERED: PANTOPRAZOLE IV 80 MG in SOD CHLORIDE 0.9% 100 ML IVPB (17:30)
[2018-07-26] MEDS ORDERED: PANTOPRAZOLE IV 80 MG in SOD CHLORIDE 0.9% 100 ML IV (17:30)
[2018-07-26] MEDS ORDERED: NACL 0.9% 3 ML SYG IV (17:30)
[2018-07-26] MEDS ORDERED: ACETAMINOPHEN 325 MG TAB PO (17:30)
[2018-07-26 18:50] LABS: AMPHETAMINE/METHAMPHETAMINE Negative (NEGATIVE); BARBITURATES Negative (NEGATIVE); BENZODIAZEPINES Negative (NEGATIVE); CANNABINOIDS Negative (NEGATIVE); COCAINE Negative (NEGATIVE); OPIATES Negative (NEGATIVE)
[2018-07-26 19:49] LABS: CREATINE KINASE 175 IU/L (23-200)
[2018-07-26 20:02] LABS: CK INDEX 1.8; TROPONIN-I < 0.012 ng/ml (0.000-0.120)
[2018-07-26 20:04] LABS: CK-MB 3.15 ng/ml (0.0-2.4)
[2018-07-26] MEDS: DOCUSATE SODIUM 100 MG CAP PO (20:41)
[2018-07-26] MEDS: SUCRALFATE (100 MG/ML) 10ML CUP PO (20:41)
[2018-07-26] MEDS: TAMSULOSIN (SR) 0.4 MG CAP PO (20:42)
[2018-07-26] MEDS: FUROSEMIDE 20 MG TAB PO (20:42)
[2018-07-26] MEDS: FAMOTIDINE 20 MG INJ IV (20:42)
[2018-07-26] MEDS: ATORVASTATIN 80 MG TAB PO (20:42)
[2018-07-26] MEDS: METOPROLOL 50 MG TAB PO (20:42)
[2018-07-26] MEDS: GABAPENTIN 100 MG CAP PO (20:42)
[2018-07-26] MEDS: PANTOPRAZOLE 40 MG INJ IV (20:43)
[2018-07-26] MEDS: BRIMONIDINE 0.2%-TIMOLOL 0.5% 5ML OPH BOTH EYES (20:43)
[2018-07-26] MEDS: traMADol 50 MG TAB PO (20:43)
[2018-07-26] MEDS: CEFEPIME 1GM/50 ML (PMX) 50 ML IVPB (20:44)
[2018-07-26] MEDS ORDERED: PANTOPRAZOLE (EC) 40 MG TAB PO (21:00)
[2018-07-26] MEDS ORDERED: CEFEPIME 1GM/50 ML (PMX) 50 ML IVPB (21:00)
[2018-07-27 00:56] LABS: HEMATOCRIT 26.2 % (42.0-52.0); HEMOGLOBIN 8.1 g/dl (14.0-18.0)
[2018-07-27 01:12] LABS: CREATINE KINASE 147 IU/L (23-200)
[2018-07-27 01:23] LABS: CK INDEX 1.5; CK-MB 2.16 ng/ml (0.0-2.4); TROPONIN-I < 0.012 ng/ml (0.000-0.120)
[2018-07-27] MEDS: FUROSEMIDE 20 MG TAB PO ×2 (05:21→17:17)
[2018-07-27] MEDS: DOCUSATE SODIUM 100 MG CAP PO ×2 (05:21→17:17)
[2018-07-27] MEDS: PANTOPRAZOLE 40 MG INJ IV ×2 (05:28→17:17)
[2018-07-27 08:12] LABS: ADD MAN DIFF? NO
[2018-07-27 08:38] LABS: WHITE BLOOD COUNT 6.5 10^3/ul (4.8-10.8)
[2018-07-27 08:38] LABS: ABNORMAL IP MESSAGE 1; BASOPHILS % 0.5 % (0.0-2.0); EOSINOPHILS # 0.2 10^3/ul (0.0-0.5); EOSINOPHILS % 3.5 % (0.0-7.0); HEMOGLOBIN 8.7 g/dl (14.0-18.0); LYMPHOCYTES # 2.5 10^3/ul (0.8-2.9); LYMPHOCYTES % 38.5 % (15.0-51.0); MEAN CORPUSCULAR HEMOGLOBIN 23.5 pg (29.0-33.0); MEAN CORPUSCULAR HGB CONC 31.1 g/dl (32.0-37.0); MEAN CORPUSCULAR VOLUME 75.7 fl (82.0-101.0); MEAN PLATELET VOLUME 10.5 fl (7.4-10.4); MONOCYTE # 0.6 10^3/ul (0.3-0.9); MONOCYTES % 8.8 % (0.0-11.0); NEUTROPHIL # 3.1 10^3/ul (1.6-7.5); NEUTROPHILS % 48.4 % (39.0-77.0); PLATELET COUNT 222 10^3/UL (140-415); POSITIVE DIFF @See below; RED CELL DISTRIBUTION WIDTH 24.7 % (11.5-14.5)
[2018-07-27 08:51] LABS: ALANINE AMINOTRANSFERASE 30 IU/L (13-69); ALBUMIN 3.5 g/dl (3.3-4.9); ALBUMIN/GLOBULIN RATIO 0.94; ALKALINE PHOSPHATASE 85 IU/L (42-121); ANION GAP 9 (5-13); ASPARTATE AMINO TRANSFERASE 21 IU/L (15-46); BILIRUBIN,INDIRECT 0.6 mg/dl (0-1.1); BILIRUBIN,TOTAL 0.6 mg/dl (0.2-1.3); BLOOD UREA NITROGEN 36 mg/dl (7-20); CALCIUM 9.2 mg/dl (8.4-10.2); CARBON DIOXIDE 20 mmol/L (21-31); CHLORIDE 112 mmol/L (97-110); CREATININE 1.44 mg/dl (0.61-1.24); GLUCOSE 92 mg/dl (70-220); MAGNESIUM 2.1 mg/dl (1.7-2.5); SODIUM 141 mmol/L (135-144); TOTAL PROTEIN 7.2 g/dl (6.1-8.1)
[2018-07-27] MEDS: SUCRALFATE (100 MG/ML) 10ML CUP PO ×4 (09:09→20:36)
[2018-07-27] MEDS: PAROXETINE 20 MG TAB PO (09:09)
[2018-07-27] MEDS: traMADol 50 MG TAB PO ×2 (09:09→20:38)
[2018-07-27] MEDS: ISOSORBIDE MONONITRATE(SR)60 MG TAB PO (09:09)
[2018-07-27] MEDS: GABAPENTIN 100 MG CAP PO ×3 (09:09→20:36)
[2018-07-27] MEDS: METOPROLOL 50 MG TAB PO ×2 (09:10→20:37)
[2018-07-27 09:14] LABS: B-TYPE NATRIURETIC PEPTIDE 543 PG/ML (0-125)
[2018-07-27] MEDS: BRIMONIDINE 0.2%-TIMOLOL 0.5% 5ML OPH BOTH EYES ×2 (09:14→20:37)
[2018-07-27 09:15] LABS: HEMOGLOBIN A1C 6.2 % (0-5.9)
[2018-07-27 10:51] LABS: CHOLESTEROL 143 mg/dl (100-200)
[2018-07-27 10:51] LABS: CHOL/HDL RATIO 6.8 RATIO; HDL CHOLESTEROL 21 mg/dl (31-75); LDL CHOLESTEROL,CALCULATED 92 mg/dl; TRIGLYCERIDES 150 mg/dl (0-149)
[2018-07-27] MEDS: PROPOFOL 20 ML (11:33)
[2018-07-27] MEDS: LIDOCAINE 2% (SDV) 5 ML INJ (11:33)
[2018-07-27] MEDS: METOCLOPRAMIDE 10 MG INJ IV ×2 (12:53→17:17)
[2018-07-27 13:42] LABS: THYROID STIMULATING HORMONE 0.891 MIU/L (0.465-4.680)
[2018-07-27] MEDS: SOD CHLORIDE 0.45% 1,000 ML IV (14:00)
[2018-07-27] MEDS: TAMSULOSIN (SR) 0.4 MG CAP PO (20:36)
[2018-07-27] MEDS: CEFEPIME 1GM/50 ML (PMX) 50 ML IVPB (20:37)
[2018-07-28] MEDS: METOCLOPRAMIDE 10 MG INJ IV ×4 (00:30→19:07)
[2018-07-28] MEDS: PANTOPRAZOLE 40 MG INJ IV ×2 (06:00→19:07)
[2018-07-28] MEDS: FUROSEMIDE 20 MG TAB PO ×2 (06:16→19:08)
[2018-07-28] MEDS: DOCUSATE SODIUM 100 MG CAP PO ×2 (06:16→19:07)
[2018-07-28 06:24] LABS: ADD MAN DIFF? NO
[2018-07-28 06:29] LABS: WHITE BLOOD COUNT 6.2 10^3/ul (4.8-10.8)
[2018-07-28 06:29] LABS: ABNORMAL IP MESSAGE 1; BASOPHILS % 0.5 % (0.0-2.0); EOSINOPHILS # 0.2 10^3/ul (0.0-0.5); EOSINOPHILS % 2.6 % (0.0-7.0); HEMATOCRIT 25.7 % (42.0-52.0); HEMOGLOBIN 8.2 g/dl (14.0-18.0); LYMPHOCYTES # 2.1 10^3/ul (0.8-2.9); LYMPHOCYTES % 33.7 % (15.0-51.0); MEAN CORPUSCULAR HEMOGLOBIN 23.6 pg (29.0-33.0); MEAN CORPUSCULAR HGB CONC 31.9 g/dl (32.0-37.0); MEAN CORPUSCULAR VOLUME 73.9 fl (82.0-101.0); MEAN PLATELET VOLUME 10.5 fl (7.4-10.4); MONOCYTE # 0.5 10^3/ul (0.3-0.9); MONOCYTES % 8.3 % (0.0-11.0); NEUTROPHIL # 3.4 10^3/ul (1.6-7.5); NEUTROPHILS % 54.6 % (39.0-77.0); PLATELET COUNT 222 10^3/UL (140-415); POSITIVE DIFF @See below; RED BLOOD COUNT 3.48 10^6/ul (4.70-6.10); RED CELL DISTRIBUTION WIDTH 23.7 % (11.5-14.5)
[2018-07-28 07:14] LABS: ANION GAP 8 (5-13); BLOOD UREA NITROGEN 30 mg/dl (7-20); CARBON DIOXIDE 20 mmol/L (21-31); CHLORIDE 111 mmol/L (97-110); CREATININE 1.05 mg/dl (0.61-1.24); GLUCOSE 98 mg/dl (70-220); POTASSIUM 3.6 mmol/L (3.5-5.1); SODIUM 139 mmol/L (135-144)
[2018-07-28] MEDS: SUCRALFATE (100 MG/ML) 10ML CUP PO ×4 (07:55→20:51)
[2018-07-28] MEDS: GABAPENTIN 100 MG CAP PO ×3 (07:56→20:52)
[2018-07-28] MEDS: PAROXETINE 20 MG TAB PO (07:56)
[2018-07-28] MEDS: BRIMONIDINE 0.2%-TIMOLOL 0.5% 5ML OPH BOTH EYES ×2 (07:56→21:06)
[2018-07-28] MEDS: ISOSORBIDE MONONITRATE(SR)60 MG TAB PO (07:56)
[2018-07-28] MEDS: METOPROLOL 50 MG TAB PO ×2 (07:56→20:52)
[2018-07-28] MEDS: LEVOFLOXACIN 500 MG TAB PO (10:15)
[2018-07-28] MEDS: ONDANSETRON 4 MG INJ IV (10:16)
[2018-07-28] MEDS: traMADol 50 MG TAB PO ×2 (12:38→20:51)
[2018-07-28] MEDS: ACETAMINOPHEN 325 MG TAB PO (14:36)
[2018-07-28] MEDS: TAMSULOSIN (SR) 0.4 MG CAP PO (20:51)
[2018-07-28] MEDS: ZOLPIDEM 5 MG TAB PO (20:53)
[2018-07-29] MEDS: ACETAMINOPHEN 325 MG TAB PO ×2 (00:31→19:51)
[2018-07-29] MEDS: METOCLOPRAMIDE 10 MG INJ IV ×4 (00:31→17:46)
[2018-07-29] MEDS: LEVOFLOXACIN 500 MG TAB PO (05:33)
[2018-07-29] MEDS: DOCUSATE SODIUM 100 MG CAP PO ×2 (05:33→17:46)
[2018-07-29] MEDS: PANTOPRAZOLE 40 MG INJ IV ×2 (05:36→17:46)
[2018-07-29] MEDS: FUROSEMIDE 20 MG TAB PO ×2 (05:36→17:47)
[2018-07-29] MEDS: traMADol 50 MG TAB PO ×3 (05:46→18:23)
[2018-07-29] MEDS: BRIMONIDINE 0.2%-TIMOLOL 0.5% 5ML OPH BOTH EYES ×2 (08:18→21:14)
[2018-07-29] MEDS: SUCRALFATE (100 MG/ML) 10ML CUP PO ×4 (08:18→21:58)
[2018-07-29] MEDS: PAROXETINE 20 MG TAB PO (08:18)
[2018-07-29] MEDS: GABAPENTIN 100 MG CAP PO ×3 (08:18→21:14)
[2018-07-29] MEDS: ISOSORBIDE MONONITRATE(SR)60 MG TAB PO (08:20)
[2018-07-29] MEDS: METOPROLOL 50 MG TAB PO ×2 (08:21→21:15)
[2018-07-29] MEDS: POLYETHYLENE GLYCOL 17 GM PACKET PO (13:24)
[2018-07-29] MEDS: TAMSULOSIN (SR) 0.4 MG CAP PO (21:14)
[2018-07-29] MEDS: traZODone 50 MG TAB PO (21:17)
[2018-07-30] MEDS: METOCLOPRAMIDE 10 MG INJ IV ×3 (00:20→11:43)
[2018-07-30] MEDS: DOCUSATE SODIUM 100 MG CAP PO (05:53)
[2018-07-30] MEDS: FUROSEMIDE 20 MG TAB PO (05:53)
[2018-07-30] MEDS: PANTOPRAZOLE 40 MG INJ IV (05:54)
[2018-07-30 06:00] LABS: ADD MAN DIFF? NO
[2018-07-30 06:12] LABS: WHITE BLOOD COUNT 6.9 10^3/ul (4.8-10.8)
[2018-07-30 06:12] LABS: ABNORMAL IP MESSAGE 1; BASOPHILS % 0.6 % (0.0-2.0); EOSINOPHILS # 0.2 10^3/ul (0.0-0.5); EOSINOPHILS % 2.7 % (0.0-7.0); HEMATOCRIT 27.8 % (42.0-52.0); HEMOGLOBIN 8.9 g/dl (14.0-18.0); LYMPHOCYTES # 2.4 10^3/ul (0.8-2.9); MEAN CORPUSCULAR HEMOGLOBIN 23.8 pg (29.0-33.0); MEAN CORPUSCULAR VOLUME 74.3 fl (82.0-101.0); MEAN PLATELET VOLUME 10.8 fl (7.4-10.4); MONOCYTE # 0.6 10^3/ul (0.3-0.9); MONOCYTES % 9.1 % (0.0-11.0); NEUTROPHIL # 3.7 10^3/ul (1.6-7.5); NEUTROPHILS % 53.3 % (39.0-77.0); PLATELET COUNT 225 10^3/UL (140-415); POSITIVE DIFF @See below; RED BLOOD COUNT 3.74 10^6/ul (4.70-6.10); RED CELL DISTRIBUTION WIDTH 23.2 % (11.5-14.5)
[2018-07-30 06:39] LABS: IRON 44 ug/dl (35-150)
[2018-07-30 06:48] LABS: % IRON SATURATION 14 % SAT (22-52); TOTAL IRON BINDING CAPACITY 307 ug/dl (241-421)
[2018-07-30 07:09] LABS: FERRITIN 35.7 ng/ml (11.1-264.0)
[2018-07-30] MEDS: PAROXETINE 20 MG TAB PO (08:50)
[2018-07-30] MEDS: GABAPENTIN 100 MG CAP PO ×2 (08:51→12:24)
[2018-07-30] MEDS: ISOSORBIDE MONONITRATE(SR)60 MG TAB PO (08:51)
[2018-07-30] MEDS: traMADol 50 MG TAB PO ×2 (08:54→15:19)
[2018-07-30] MEDS: BRIMONIDINE 0.2%-TIMOLOL 0.5% 5ML OPH BOTH EYES (08:58)
[2018-07-30] MEDS: POLYETHYLENE GLYCOL 17 GM PACKET PO (08:59)
[2018-07-30] MEDS: SUCRALFATE (100 MG/ML) 10ML CUP PO ×3 (09:00→17:21)
[2018-07-30] MEDS: METOPROLOL 50 MG TAB PO (09:00)
[2018-07-30] MEDS: ACETAMINOPHEN 325 MG TAB PO (11:43)
== END 2018-07-30 17:34 | disposition home health service (06) | DRG 315 ==
LOC: PP2 07-28 10:46 → E/R 12:26 → PP2 18:05 → TEL 17:27
PROC: 0DB68ZX Excision of Stomach, Via Natural or Artificial Opening Endoscopic, Diagnostic (ICD-10-PCS; principal; 2018-07-27 11:00)
DX: I95.9 Hypotension, unspecified (principal); I13.0 Hypertensive heart and chronic kidney disease with heart failure and stage 1 through stage 4 chronic kidney disease, or unspecified chronic kidney disease; E87.2 Acidosis; E87.1 Hypo-osmolality and hyponatremia; N17.9 Acute kidney failure, unspecified; I50.9 Heart failure, unspecified; F03.90 Unspecified dementia, unspecified severity, without behavioral disturbance, psychotic disturbance, mood disturbance, and anxiety; N18.9 Chronic kidney disease, unspecified; I16.0 Hypertensive urgency; K29.70 Gastritis, unspecified, without bleeding; K31.84 Gastroparesis; H40.9 Unspecified glaucoma; Z85.46 Personal history of malignant neoplasm of prostate; F10.10 Alcohol abuse, uncomplicated; R74.8 Abnormal levels of other serum enzymes; F11.10 Opioid abuse, uncomplicated; D50.9 Iron deficiency anemia, unspecified; K59.00 Constipation, unspecified; R07.89 Other chest pain; K25.9 Gastric ulcer, unspecified as acute or chronic, without hemorrhage or perforation
CPT/HCPCS: 36415; 70450; 71045; 80048; 80053; 80061; 80307; 81001; 82150; 82550; 82553; 82728; 83036; 83540; 83690; 83735; 83880; 84100; 84443; 84484; 85014; 85018; 85025; 85610; 85730; 88305; 88312; 93005; 97162; 99217; 99285-25; G0378